=== PATIENT | female | born 1990 | race Caucasian/White ===

== ENCOUNTER → 2018-04-08 | Outpatient (CLI) | payer SELFPAY ==
--- NOTE | 2018-04-08 16:02 | US ---
EXAMINATION TYPE: Transabdominal DATE OF EXAM: 09/07/17 COMPARISON: NONE CLINICAL HISTORY: Z32.01 Encounter for test. Unknown LMP. No pain or bleeding. Dates. EXAM PERFORMED: Transvaginal (TV) and Transabdominal (TA) EXAM MEASUREMENTS: GESTATIONAL AGE / DATING Dates by LMP: LMP unknown Dates by Current Scan for: ( 5 weeks/6 days) EDC: 12/03/2018 MATERNAL ANATOMY Uterus: 8.2 x 5.0 x 4.4 cm Right Ovary: 2.1 x 1.0 x 1.2 cm Left Ovary: 3.0 x 1.8 x 1.9 cm Post CDS / Adnexa: free fluid in posterior cul de sac Presence of free fluid: no Presence of corpus luteal cyst: left ovarian lesion with peripheral vascular flow - 1.7 x 1.7 x 1.7 c m Presence of subchorionic bleed: no GESTATION / SURVEY CRL: 0.2 cm ( 5 weeks/5 days) MSD: 1.1 cm (5 weeks/6 days) Yolk Sac (normal less than 6mm): 2.6 mm Heart Rate: 111 bpm Rhythm: Normal IUP: Viable IUP Date of LMP: Unknown LMP, Beta HcG (if available): Not available at this time Single live IUP measuring 5 weeks 6 days. IMPRESSION: 1. Single intrauterine gestation estimated at 5 weeks 5 days gestation based on crown-rump length. Ca rdiac activity measures 111 bpm.
== END ==
LOC: RADUSMAIN 14:25
PROVIDERS: ATTEND Family Medicine
DX: Z32.01 Encounter for pregnancy test, result positive (principal); Z3A.01 Less than 8 weeks gestation of pregnancy
CPT/HCPCS: 76801; 76817

== ENCOUNTER 2018-05-06 08:20 | Emergency (ER) | payer OTHER ==
[2018-05-06 08:28] VITALS: RESP 16
[2018-05-06] MEDS ORDERED: SODIUM CHLORIDE 0.9% 1,000 ML IV STA ×2 (08:39)
[2018-05-06] MEDS ORDERED: METOCLOPRAMIDE 5 MG/ML 2 ML VIAL IVP STA (08:50)
--- NOTE | 2018-05-06 08:51 | ED ---
Nausea/Vomiting/Diarrhea HPI - General Chief complaint: Nausea/Vomiting/Diarrhea Stated complaint: VOMITING Time Seen by Provider: 05/06/18 08:39 Source: patient, RN notes reviewed, old records reviewed Mode of arrival: ambulatory Limitations: no limitations - History of Present Illness Initial comments: Patient is a 28-year-old female, with a history of vomiting for one day. Patient reports that she started vomiting last evening. She has not been able tolerate her medication. Patient states that she has approximately 10 weeks . She will be following up with [facility] [employer]. Patient states that she has had no fevers or chills. She denies abdominal pain. She denies any vaginal bleeding or discharge.Patient denies any recent fever, chills, shortness of breath, chest pain, back pain, numbness or tingling, dysuria or hematuria, constipation or diarrhea, headaches or visual changes, or any other current symptoms - Related Data Home Medications Medication Instructions Recorded Confirmed Ondansetron Odt [Zofran ODT] 8 mg PO DAILY PRN 04/20/18 05/06/18 Pedi Multivit No.25/Folic Acid 600 mcg PO DAILY 04/20/18 05/06/18 [Flintstones Multivit Chew Tab] Previous Rx's Medication Instructions Recorded Metoclopramide [Reglan] 10 mg PO ACHS #10 tab 05/06/18 Allergies Allergy/AdvReac Type Severity Reaction Status Date / Time amoxicillin Allergy Unknown Verified 05/06/18 08:44 hydromorphone [From Dilaudid] AdvReac Nausea & Verified 05/06/18 08:44 Vomiting Review of Systems ROS Statement: Those systems with pertinent positive or pertinent negative responses have been documented in the HPI. ROS Other: All systems not noted in ROS Statement are negative. Past Medical History Past Medical History: No Reported History Additional Past Medical History / Comment(s): frequent N/V, diarrhea, abd. pain History of Any Multi-Drug Resistant Organisms: None Reported Past Surgical History: Cholecystectomy, Orthopedic Surgery Additional Past Surgical History / Comment(s): EXC WISDOM TEETH. RT KNEE ACL RECONSTRUCTIONS Past Anesthesia/Blood Transfusion Reactions: Postoperative Nausea & Vomiting ( PONV) Additional Past Anesthesia/Blood Transfusion Reaction / Comment(s): SEVERE PONV , EVEN W/ PRE-MED RX Past Psychological History: No Psychological Hx Reported Smoking Status: Never smoker Past Alcohol Use History: None Reported Past Drug Use History: None Reported - Past Family History Mother Family Medical History: No Reported History General Exam - General Exam Comments Initial Comments: Well-appearing 28-year-old female. No acute distress. Limitations: no limitations General appearance: alert, in no apparent distress Head exam: Present: atraumatic, normocephalic, normal inspection Eye exam: Present: normal appearance, PERRL, EOMI. Absent: scleral icterus, conjunctival injection, periorbital swelling ENT exam: Present: normal exam, mucous membranes moist Neck exam: Present: normal inspection. Absent: tenderness, meningismus, lymphadenopathy Respiratory exam: Present: normal lung sounds bilaterally. Absent: respiratory distress, wheezes, rales, rhonchi, stridor Cardiovascular Exam: Present: regular rate, normal rhythm, normal heart sounds. Absent: systolic murmur, diastolic murmur, rubs, gallop, clicks GI/Abdominal exam: Present: soft, normal bowel sounds. Absent: distended, tenderness, guarding, rebound, rigid Extremities exam: Present: normal inspection, full ROM, normal capillary refill. Absent: tenderness, pedal edema, joint swelling, calf tenderness Back exam: Present: normal inspection Neurological exam: Present: alert, oriented X3, CN II-XII intact Psychiatric exam: Present: normal affect, normal mood Skin exam: Present: warm, dry, intact, normal color. Absent: rash Course Vital Signs 05/06/18 08:25 Temperature 98.3 F Pulse Rate 86 Respiratory 16 Rate Blood Pressure 105/69 O2 Sat by Pulse 97 Oximetry Medical Decision Making - Medical Decision Making Patient is a 28-year-old female presents for associated nausea vomiting. She said weeks she is given IV fluids and Reglan. No history of sick contacts she is aware. This time she has no abdominal tenderness. No vaginal bleeding or discharge. Patient did have 1+ ketones in her urine. Patient will have a urine culture. I discussed the Patient should follow-up with primary care physician. Patient will be discharged at this time with Reglan and Zoluis ODT. All questions answered return parameters were discussed. - Lab Data Result diagrams: 05/06/18 09:10 05/06/18 09:10 Lab Results 05/06/18 05/06/18 05/06/18 Range/Units 09:10 09:10 09:10 WBC 10.0 (3.8-10.6) k/uL RBC 4.88 (3.80-5.40) m/uL Hgb 14.5 (11.4-16.0) gm/dL Hct 43.9 (34.0-46.0) % MCV 90.0 (80.0-100.0) fL MCH 29.7 (25.0-35.0) pg MCHC 33.0 (31.0-37.0) g/dL RDW 12.9 (11.5-15.5) % Plt Count 254 (150-450) k/uL Neutrophils % 82 % Lymphocytes % 13 % Monocytes % 3 % Eosinophils % 0 % Basophils % 0 % Neutrophils # 8.2 H (1.3-7.7) k/uL Lymphocytes # 1.3 (1.0-4.8) k/uL Monocytes # 0.3 (0-1.0) k/uL Eosinophils # 0.0 (0-0.7) k/uL Basophils # 0.0 (0-0.2) k/uL Sodium 139 (137-145) mmol/L Potassium 4.6 (3.5-5.1) mmol/L Chloride 104 (98-107) mmol/L Carbon Dioxide 25 (22-30) mmol/L Anion Gap 10 mmol/L BUN 9 (7-17) mg/dL Creatinine 0.41 L (0.52-1.04) mg/dL Est GFR (CKD-EPI)AfAm >90 (>60 ml/min/1.73 sqM) Est GFR (CKD-EPI)NonAf >90 (>60 ml/min/1.73 sqM) Glucose 81 (74-99) mg/dL Calcium 10.1 (8.4-10.2) mg/dL Total Bilirubin 0.4 (0.2-1.3) mg/dL AST 25 (14-36) U/L ALT 35 (9-52) U/L Alkaline Phosphatase 54 (38-126) U/L Total Protein 7.3 (6.3-8.2) g/dL Albumin 4.1 (3.5-5.0) g/dL Amylase 60 (30-110) U/L Lipase 33 (23-300) U/L Urine Color Yellow Urine Appearance Cloudy H (Clear) Urine pH 8.0 (5.0-8.0) Ur Specific [place] 1.019 (1.001-1.035) Urine Protein Trace H (Negative) Urine Glucose (UA) Negative (Negative) Urine Ketones 1+ H (Negative) Urine Blood Negative (Negative) Urine Nitrite Negative (Negative) Urine Bilirubin Negative (Negative) Urine Urobilinogen <2.0 (<2.0) mg/dL Ur Leukocyte Esterase Negative (Negative) Ur Squamous Epith Cells 3 (0-4) /hpf Amorphous Sediment Rare H (None) /hpf Urine Bacteria Rare H (None) /hpf Urine Mucus Few H (None) /hpf Disposition Clinical Impression: Nausea & vomiting Disposition: HOME SELF-CARE Condition: Good Instructions: Nausea and Vomiting in (ED) Additional Instructions: Patient advised to follow-up with primary care physician and [employer]. Return to emergency department if any alarming signs or symptoms occur. Prescriptions: Metoclopramide [Reglan] 10 mg PO ACHS #10 tab Is patient prescribed a controlled substance at d/c from ED?: No Referrals: Serina Rios MD [Primary Care Provider] - 1-2 days Time of Disposition: 10:09
[2018-05-06 09:46] LABS: Basophils % (A) 0 %; Eosinophils % (A) 0 %; HCT 43.9 % (34.0-46.0); HGB 14.5 gm/dL (11.4-16.0); Lymphocytes # (A) 1.3 k/uL (1.0-4.8); Lymphocytes % (A) 13 %; MCH 29.7 pg (25.0-35.0); Mean Platelet Volume 7.2; Monocytes # (A) 0.3 k/uL (0-1.0); Monocytes % (A) 3 %; Neutrophils # (A) 8.2 k/uL (1.3-7.7); Neutrophils % (A) 82 %; Platelet Count 254 k/uL (150-450); RBC 4.88 m/uL (3.80-5.40); RDW 12.9 % (11.5-15.5)
[2018-05-06 09:49] LABS: ALT 35 U/L (9-52); AST 25 U/L (14-36); Albumin 4.1 g/dL (3.5-5.0); Alkaline Phosphatase 54 U/L (38-126); Amylase 60 U/L (30-110); Anion Gap 10 mmol/L; Blood Urea Nitrogen 9 mg/dL (7-17); Calcium 10.1 mg/dL (8.4-10.2); Carbon Dioxide 25 mmol/L (22-30); Chloride 104 mmol/L (98-107); Glucose 81 mg/dL (74-99); Lipase 33 U/L (23-300); Potassium 4.6 mmol/L (3.5-5.1); Sodium 139 mmol/L (137-145); Total Bilirubin 0.4 mg/dL (0.2-1.3); Total Protein 7.3 g/dL (6.3-8.2)
[2018-05-06 09:50] LABS: Amorphous Sediment,Urine Rare /hpf; Appearance,Urine Cloudy (Clear); Bacteria,Urine Rare /hpf; Bilirubin,Urine Negative (Negative); Blood,Urine Negative (Negative); Color,Urine Yellow; Glucose,Urine (UA) Negative (Negative); Ketones,Urine 1+ (Negative); Leukocyte Esterase,Urine Negative (Negative); Mucus,Urine Few /hpf; Nitrite,Urine Negative (Negative); Protein,Urine Trace (Negative); Specific Gravity,Urine 1.019 (1.001-1.035); Squamous Epithelial Cell,Urine 3 /hpf (0-4); Urobilinogen,Urine <2.0 mg/dL (<2.0)
[2018-05-06] MEDS ORDERED: ONDANSETRON 4 MG ODT STARTER PACK 2 TAB BTL PO STA (10:10)
[2018-05-06 10:35] VITALS: BP 112/53; PULSE 70; TEMP 98
== END 2018-05-06 10:35 | disposition home or self-care (01) ==
LOC: EC 08:20
DX: O21.9 Vomiting of pregnancy, unspecified (principal); Z3A.10 10 weeks gestation of pregnancy; Z88.0 Allergy status to penicillin; Z88.5 Allergy status to narcotic agent; Z53.8 Procedure and treatment not carried out for other reasons
CPT/HCPCS: 36415; 80053; 81001; 82150; 83690; 85025; 96361; 96374; 99284

== ENCOUNTER 2018-07-31 10:19 | Emergency (ER) | payer OTHER ==
[2018-07-31 10:29] VITALS: RESP 18
--- NOTE | 2018-07-31 11:06 | ED ---
General Adult HPI - General Chief complaint: Extremity Injury, Lower Stated complaint: Hip pain Source: patient Mode of arrival: ambulatory Limitations: no limitations - History of Present Illness Initial comments: 28-year-old female 22 weeks presents today for chief complaint of left hip pain times one day. Patient states yesterday she was 4 lang doing a lot of walking all day. She states she began noticing left hip pain that has increased throughout the night and persisted today. Patient states the pain begins near the groin and radiates towards the posterior aspect of the hip. She states that increases with ambulation. She denies any falls or trauma to the left hip or back. Denies any left hip erythema or warmth. She denies any lower extremity swelling, or masses. Patient denies any history of blood clots. She has not taken any medication for the pain, she states she does not like to take Tylenol as it upsets her stomach. Remaining review of systems negative, patient denies any recent fever, chills, nightsweats, shortness of breath, chest pain, back pain, abdominal pain, nausea or vomiting, numbness or tingling of the LE b/l, dysuria or hematuria, constipation or diarrhea, headaches or visual changes, or any other complaints. - Related Data Home Medications Medication Instructions Recorded Confirmed Cholecalciferol [Vitamin D3] 1,000 unit PO DAILY 07/31/18 07/31/18 Omeprazole Magnesium [PriLOSEC OTC] 20 mg PO DAILY PRN 07/31/18 07/31/18 Gmj-Vxam-Scvbs Acid 1 cap PO DAILY 07/31/18 07/31/18 [-U Capsule (formulary)] Previous Rx's Medication Instructions Recorded Cephalexin [Keflex] 500 mg PO Q12HR 5 Days #10 cap 07/31/18 Allergies Allergy/AdvReac Type Severity Reaction Status Date / Time amoxicillin Allergy Unknown Verified 07/31/18 13:06 hydromorphone [From Dilaudid] AdvReac Nausea & Verified 07/31/18 13:06 Vomiting Review of Systems ROS Statement: Those systems with pertinent positive or pertinent negative responses have been documented in the HPI. ROS Other: All systems not noted in ROS Statement are negative. Past Medical History Past Medical History: No Reported History Additional Past Medical History / Comment(s): frequent N/V, diarrhea, abd. pain History of Any Multi-Drug Resistant Organisms: None Reported Past Surgical History: Cholecystectomy, Orthopedic Surgery Additional Past Surgical History / Comment(s): EXC WISDOM TEETH. RT KNEE ACL RECONSTRUCTIONS Past Anesthesia/Blood Transfusion Reactions: Postoperative Nausea & Vomiting ( PONV) Additional Past Anesthesia/Blood Transfusion Reaction / Comment(s): SEVERE PONV , EVEN W/ PRE-MED RX Past Psychological History: No Psychological Hx Reported Smoking Status: Never smoker Past Alcohol Use History: None Reported Past Drug Use History: None Reported - Past Family History Mother Family Medical History: No Reported History General Exam - General Exam Comments Initial Comments: General: The patient is awake and alert, in no distress, and does not appear acutely ill. Eye: Pupils are equal, round and reactive to light, extra-ocular movements are intact. No nystagmus. There is normal conjunctiva bilaterally. No signs of icterus. Ears, nose, mouth and throat: There are moist mucous membranes and no oral lesions. Neck: The neck is supple, there is no tenderness or JVD. Cardiovascular: There is a regular rate and rhythm. No murmur, rub or gallop is appreciated. Respiratory: Lungs are clear to auscultation, respirations are non-labored, breath sounds are equal. No wheezes, stridor, rales, or rhonchi. Musculoskeletal: Normal ROM at the hip b/l there is pain to palpation of the left groin, no tenderness of right. Pt has increased pain with rom of the left groin but does not limits movement. Strength 5/5 of the LE equal b/l. Sensation intact of the LE equal b/l. DP pulses equal bilaterally 2+. No soft tissue swelling. No erythema or warmth of joint. No masses Neurological: A&O x 3. CN II-XII intact, There are no obvious motor or sensory deficits. Coordination appears grossly intact. Speech is normal. Skin: Skin is warm and dry and no rashes or lesions are noted. Psychiatric: Cooperative, appropriate mood & affect, normal judgment. Limitations: no limitations Course Vital Signs 07/31/18 07/31/18 10:25 13:33 Temperature 98.8 F 97.8 F Pulse Rate 102 H 92 Respiratory 18 18 Rate Blood Pressure 97/63 108/71 O2 Sat by Pulse 100 98 Oximetry Medical Decision Making - Medical Decision Making Appearing 28-year-old female increasing left hip pain after increased activity yesterday. Duplex US (-) DVT, pt refused imaging studies due to , WBC consistent with 2nd trimester no infectious symptomology at this time. Pt is able to weight bear and fully range at the left hip. US revealed asymptomatic bacteruria. Pt given RX For keflex for treatment given 22 weeks . She is to follow-up with primary care provider her further evaluation. I did recommend rest elevation and applying ice 20 minutes on 20 minutes off. Patient is to return for worsening symptoms, or development of any fever. Patient is agreeable plan discharge tonight questions at this time. Pt case was discussed with attending provider Dr. Metz who agreed with impression and plan. Pt discharged appearing well. - Lab Data Result diagrams: 07/31/18 12:20 07/31/18 12:20 Lab Results 07/31/18 07/31/18 07/31/18 Range/Units 12:20 12:20 12:43 WBC 12.0 H (3.8-10.6) k/uL RBC 4.09 (3.80-5.40) m/uL Hgb 12.8 (11.4-16.0) gm/dL Hct 38.9 (34.0-46.0) % MCV 95.0 (80.0-100.0) fL MCH 31.2 (25.0-35.0) pg MCHC 32.9 (31.0-37.0) g/dL RDW 13.6 (11.5-15.5) % Plt Count 249 (150-450) k/uL Neutrophils % 79 % Lymphocytes % 14 % Monocytes % 4 % Eosinophils % 1 % Basophils % 0 % Neutrophils # 9.5 H (1.3-7.7) k/uL Lymphocytes # 1.7 (1.0-4.8) k/uL Monocytes # 0.5 (0-1.0) k/uL Eosinophils # 0.1 (0-0.7) k/uL Basophils # 0.0 (0-0.2) k/uL Sodium 138 (137-145) mmol/L Potassium 4.0 (3.5-5.1) mmol/L Chloride 109 H (98-107) mmol/L Carbon Dioxide 22 (22-30) mmol/L Anion Gap 7 mmol/L BUN 7 (7-17) mg/dL Creatinine 0.36 L (0.52-1.04) mg/dL Est GFR (CKD-EPI)AfAm >90 (>60 ml/min/1.73 sqM) Est GFR (CKD-EPI)NonAf >90 (>60 ml/min/1.73 sqM) Glucose 93 (74-99) mg/dL Calcium 9.3 (8.4-10.2) mg/dL Total Bilirubin 0.4 (0.2-1.3) mg/dL AST 23 (14-36) U/L ALT 35 (9-52) U/L Alkaline Phosphatase 74 (38-126) U/L Total Protein 6.3 (6.3-8.2) g/dL Albumin 3.3 L (3.5-5.0) g/dL Urine Color Yellow Urine Appearance Cloudy H (Clear) Urine pH 7.5 (5.0-8.0) Ur Specific [place] 1.017 (1.001-1.035) Urine Protein Trace H (Negative) Urine Glucose (UA) 2+ H (Negative) Urine Ketones Negative (Negative) Urine Blood Negative (Negative) Urine Nitrite Negative (Negative) Urine Bilirubin Negative (Negative) Urine Urobilinogen <2.0 (<2.0) mg/dL Ur Leukocyte Esterase Trace H (Negative) Urine WBC 4 (0-5) /hpf Ur Squamous Epith Cells 2 (0-4) /hpf Amorphous Sediment Moderate H (None) /hpf Urine Bacteria Occasional H (None) /hpf Urine Mucus Occasional H (None) /hpf Disposition Clinical Impression: Strain of groin Disposition: HOME SELF-CARE Condition: Good Instructions (If sedation given, give patient instructions): Groin Strain (ED) Additional Instructions: Please use medication as discussed. Please follow-up with family doctor in the next 2 days. Please return to emergency room if the symptoms increase or worsen or for any other concerns. Prescriptions: Cephalexin [Keflex] 500 mg PO Q12HR 5 Days #10 cap Is patient prescribed a controlled substance at d/c from ED?: No Referrals: Serina Rios MD [Primary Care Provider] - 1-2 days Time of Disposition: 13:12
--- NOTE | 2018-07-31 11:52 | US ---
EXAMINATION TYPE: US venous doppler duplex LE LT DATE OF EXAM: 07/31/2018 10:56 AM COMPARISON: NONE CLINICAL HISTORY: Pain. Pain left hip/leg after walking long period of time last night. Patient is pr egnant SIDE PERFORMED: Left TECHNIQUE: The lower extremity deep venous system is examined utilizing real time linear array sonog car with graded compression, doppler sonography and color-flow sonography. VESSELS IMAGED: External Iliac Vein (EIV) Common Femoral Vein Deep Femoral Vein Greater Saphenous Vein * Femoral Vein Popliteal Vein Small Saphenous Vein * Proximal Calf Veins (* superficial vessels) Left Leg: Negative for DVT IMPRESSION: 1. Left lower extremity ultrasound negative for deep venous thrombosis.
[2018-07-31 12:38] LABS: Basophils % (A) 0 %; Eosinophils # (A) 0.1 k/uL (0-0.7); Eosinophils % (A) 1 %; HCT 38.9 % (34.0-46.0); HGB 12.8 gm/dL (11.4-16.0); Lymphocytes # (A) 1.7 k/uL (1.0-4.8); Lymphocytes % (A) 14 %; MCH 31.2 pg (25.0-35.0); MCHC 32.9 g/dL (31.0-37.0); Mean Platelet Volume 7.2; Monocytes # (A) 0.5 k/uL (0-1.0); Monocytes % (A) 4 %; Neutrophils # (A) 9.5 k/uL (1.3-7.7); Neutrophils % (A) 79 %; Platelet Count 249 k/uL (150-450); RBC 4.09 m/uL (3.80-5.40); RDW 13.6 % (11.5-15.5)
[2018-07-31 12:47] LABS: ALT 35 U/L (9-52); AST 23 U/L (14-36); Albumin 3.3 g/dL (3.5-5.0); Alkaline Phosphatase 74 U/L (38-126); Anion Gap 7 mmol/L; Blood Urea Nitrogen 7 mg/dL (7-17); Calcium 9.3 mg/dL (8.4-10.2); Carbon Dioxide 22 mmol/L (22-30); Chloride 109 mmol/L (98-107); Glucose 93 mg/dL (74-99); Sodium 138 mmol/L (137-145); Total Bilirubin 0.4 mg/dL (0.2-1.3); Total Protein 6.3 g/dL (6.3-8.2)
[2018-07-31 13:03] LABS: Amorphous Sediment,Urine Moderate /hpf; Appearance,Urine Cloudy (Clear); Bacteria,Urine Occasional /hpf; Bilirubin,Urine Negative (Negative); Blood,Urine Negative (Negative); Color,Urine Yellow; Glucose,Urine (UA) 2+ (Negative); Ketones,Urine Negative (Negative); Leukocyte Esterase,Urine Trace (Negative); Mucus,Urine Occasional /hpf; Nitrite,Urine Negative (Negative); PH, Urine 7.5 (5.0-8.0); Protein,Urine Trace (Negative); Specific Gravity,Urine 1.017 (1.001-1.035); Squamous Epithelial Cell,Urine 2 /hpf (0-4); Urobilinogen,Urine <2.0 mg/dL (<2.0); WBC,Urine 4 /hpf (0-5)
[2018-07-31 13:34] VITALS: BP 108/71; PULSE 92; TEMP 97.8
== END 2018-07-31 13:34 | disposition home or self-care (01) ==
LOC: EC 10:19
DX: O9A.212 Injury, poisoning and certain other consequences of external causes complicating pregnancy, second trimester (principal); S39.011A Strain of muscle, fascia and tendon of abdomen, initial encounter; O99.89 Other specified diseases and conditions complicating pregnancy, childbirth and the puerperium; R82.71 Bacteriuria; Z90.49 Acquired absence of other specified parts of digestive tract; Z3A.22 22 weeks gestation of pregnancy; Z53.29 Procedure and treatment not carried out because of patient's decision for other reasons; Z88.0 Allergy status to penicillin; Z88.5 Allergy status to narcotic agent; X58.XXXA Exposure to other specified factors, initial encounter
CPT/HCPCS: 36415; 80053; 81001; 85025; 99284

== ENCOUNTER 2018-10-08 16:30 | Outpatient (CLI) | payer OTHER ==
[2018-10-08 17:21] LABS: Appearance,Urine Cloudy (Clear); Bacteria,Urine Rare /hpf; Bilirubin,Urine Negative (Negative); Blood,Urine Negative (Negative); Color,Urine Yellow; Glucose,Urine (UA) 4+ (Negative); Ketones,Urine 1+ (Negative); Leukocyte Esterase,Urine Trace (Negative); Mucus,Urine Occasional /hpf; Nitrite,Urine Negative (Negative); Protein,Urine 1+ (Negative); Specific Gravity,Urine 1.031 (1.001-1.035); Squamous Epithelial Cell,Urine 4 /hpf (0-4); Urobilinogen,Urine <2.0 mg/dL (<2.0); WBC,Urine 6 /hpf (0-5)
[2018-10-08] MEDS: BETAMET ACET-BETAMETH SOD PHOS 6 MG/ML VIAL IM SCH (17:50)
[2018-10-08] MEDS: LACTATED RINGERS 1,000 ML IV SCH (17:51)
[2018-10-08 18:54] VITALS: BP 120/62; PULSE 100; RESP 16; TEMP 98.9
--- NOTE | 2018-10-09 10:15 | P.MSEPDOC ---
Presenting Problems - Arrival Data Date of Arrival on Unit: 10/08/18 Time of Arrival on Unit: 16:30 Mode of Transport: Ambulatory - Complaint OB-Reason for Admission/Chief Complaint: Other Comment: back pain Medical History - Information : 2 Para: 1 Term: 1 : 0 Abortions: Spontaneous or Elective: 0 Number of Living Children: 1 - Gestational Age Gestational Age by FRANCHESCA (wks/days): 32 Weeks and 0 Days Review of Systems - Review of Systems Constitutional: No problems Breast: No problems ENT: No problems Cardiovascular: No problems Respiratory: No problems Gastrointestinal: No problems Genitourinary: No problems Musculoskeletal: No problems Neurological: No problems Skin: No problems Vital Signs - Temperature Temperature: 98.9 F Temperature Source: Oral - Pulse Sitting Pulse Rate: 100 Pulse Assessment Method: Palpation - Respirations Respiratory Rate: 16 Oxygen Delivery Method: Room Air - Blood Pressure Left Arm Blood Pressure: 120/62 Blood Pressure Mean: 81 Blood Pressure Source: Automatic Cuff Medical Screen Scoring (Pre) - Cervical Exam Dilation: 1-3 cm = 1 Effacement: More than 50% = 2 Membranes: Intact - Uterine Contractions Frequency: N/A Duration: N/A Intensity: N/A - Maternal Vital Signs Maternal Temperature: N/A - Pain Assessment Pain Location and Character: Back Pain Intensity: 3 Pain Management Goal: 0 Pain Description: Cramping Pain Frequency: Occasional - Maternal Trauma Maternal Trauma: N/A - Assessment Baseline FHR: 140 Heart Rate - NICHD Category: Category I (Normal) = 0 NST: Reactive - Total Score Total Score (Pre): 3 - Level of Risk Level of Risk: Low (0-5) Physician Notification (Pre) - Physician Notified Physician Notified Date: 10/08/18 Physician Notified Time: 17:45 Physician/Practitioner Notifed:: dr sun Spoke With: dr sun New Order Received: Yes Disposition - Disposition OB Disposition: Discharge to home Discharge Date: 10/08/18 Discharge Time: 18:53 I agree with the RN Medical Screening Exam: Yes Risk & Benefit of care provided described in d/c instruction: Yes Diagnosis: FALSE LABOR BEFORE 37 COMPLETED WEEKS OF GEST, THIRD TRI
== END 2018-10-08 18:55 | disposition home or self-care (01) ==
LOC: FBPOP 16:30
PROVIDERS: ATTEND Obstetrics & Gynecology Obstetrics
DX: O47.03 False labor before 37 completed weeks of gestation, third trimester (principal); Z3A.32 32 weeks gestation of pregnancy
CPT/HCPCS: 59025; 81001; 82731; 96360; 99214

== ENCOUNTER 2018-10-09 18:40 | Outpatient (CLI) | payer OTHER ==
[2018-10-09] MEDS ORDERED: BETAMET ACET-BETAMETH SOD PHOS 6 MG/ML VIAL IM SCH (19:00)
[2018-10-09 19:08] VITALS: BP 122/62; PULSE 117; RESP 18; TEMP 97.3
--- NOTE | 2018-11-14 12:23 | P.MSEPDOC ---
Presenting Problems - Arrival Data Date of Arrival on Unit: 10/09/18 Time of Arrival on Unit: 18:40 Mode of Transport: Ambulatory - Complaint OB-Reason for Admission/Chief Complaint: Celestone Injection Comment: 2nd celestone injection Medical History - Information : 2 Para: 1 Term: 1 : 0 Abortions: Spontaneous or Elective: 0 Number of Living Children: 1 - Gestational Age Gestational Age by FRANCHESCA (wks/days): 32 Weeks and 1 Days Review of Systems - Review of Systems Constitutional: No problems Breast: No problems ENT: No problems Cardiovascular: No problems Respiratory: No problems Gastrointestinal: No problems Genitourinary: No problems Musculoskeletal: No problems Neurological: No problems Skin: No problems Vital Signs - Temperature Temperature: 97.3 F Temperature Source: Temporal Artery Scan - Pulse Right Brachial Pulse Rate: 117 Pulse Assessment Method: Automatic Cuff - Respirations Respiratory Rate: 18 Oxygen Delivery Method: Room Air - Blood Pressure Right Arm Blood Pressure: 122/62 Blood Pressure Mean: 82 Blood Pressure Source: Automatic Cuff Medical Screen Scoring (Pre) - Cervical Exam Dilation: Exam Deferred Effacement: Exam Deferred Membranes: Intact - Maternal Vital Signs Maternal Temperature: N/A Maternal Blood Pressure: N/A Signs of Preeclampsia: N/A - Assessment - Baby A Position: N/A Station: N/A - Total Score - Baby A Total Score - Baby A: 0 - Level of Risk - Baby A Level of Risk - Baby A: N/A - Pain Assessment Pain Scale Used: Numeric (1 - 10) Pain Intensity: 0 Physician Notification (Pre) - Physician Notified Physician Notified Date: 10/09/18 Physician Notified Time: 18:45 Physician/Practitioner Notifed:: Dr. Sanders Spoke With: Dr. Sanders New Order Received: Yes - Notification Comment Comment: celestone injection only, no NST is needed Disposition - Disposition OB Disposition: Triage, Discharge to home, Written follow up instructions reviewed Discharge Date: 10/09/18 Discharge Time: 19:05 I agree with the RN Medical Screening Exam: Yes Risk & Benefit of care provided described in d/c instruction: Yes Diagnosis: FALSE LABOR BEFORE 37 COMPLETED WEEKS OF GEST, THIRD TRI
== END 2018-10-09 19:05 | disposition home or self-care (01) ==
LOC: FBPOP 18:40
PROVIDERS: ATTEND Obstetrics & Gynecology Obstetrics
DX: O47.03 False labor before 37 completed weeks of gestation, third trimester (principal); Z3A.32 32 weeks gestation of pregnancy
CPT/HCPCS: 96372; G0463; J0702; 99213

== ENCOUNTER 2018-10-19 15:19 | Outpatient (CLI) | payer OTHER ==
[2018-10-19 15:50] LABS: Basophils % (A) 0 %; Eosinophils # (A) 0.1 k/uL (0-0.7); Eosinophils % (A) 1 %; HCT 34.7 % (34.0-46.0); HGB 11.5 gm/dL (11.4-16.0); Hypochromasia Slight; Lymphocytes # (A) 1.8 k/uL (1.0-4.8); Lymphocytes % (A) 12 %; MCH 28.2 pg (25.0-35.0); MCHC 33.1 g/dL (31.0-37.0); Monocytes # (A) 0.7 k/uL (0-1.0); Monocytes % (A) 5 %; Neutrophils # (A) 12.2 k/uL (1.3-7.7); Neutrophils % (A) 81 %; Platelet Count 326 k/uL (150-450); Poikilocytosis Slight; RBC 4.07 m/uL (3.80-5.40); RDW 13.6 % (11.5-15.5)
[2018-10-19 16:05] LABS: ALT 38 U/L (9-52); AST 27 U/L (14-36); African American GFR (CKD) >90 (>60 ml/min/1.73 sqM); Blood Urea Nitrogen 9 mg/dL (7-17); LDH 409 U/L (313-618); Uric Acid 2.9 mg/dL (3.7-7.4)
[2018-10-19 16:12] LABS: MCV 85.3 fL (80.0-100.0)
[2018-10-19 16:56] VITALS: BP 120/68; PULSE 107; RESP 16; TEMP 97.4
[2018-10-19 17:50] LABS: Appearance,Urine Turbid (Clear); Bilirubin,Urine Negative (Negative); Blood,Urine Negative (Negative); Color,Urine Yellow; Glucose,Urine (UA) 3+ (Negative); Ketones,Urine Negative (Negative); Leukocyte Esterase,Urine Moderate (Negative); Mucus,Urine Many /hpf; Nitrite,Urine Negative (Negative); Protein,Urine 1+ (Negative); Specific Gravity,Urine 1.032 (1.001-1.035); Squamous Epithelial Cell,Urine 9 /hpf (0-4); Urobilinogen,Urine <2.0 mg/dL (<2.0); WBC,Urine 26 /hpf (0-5)
--- NOTE | 2018-11-14 12:32 | P.MSEPDOC ---
Presenting Problems - Arrival Data Date of Arrival on Unit: 10/19/18 Time of Arrival on Unit: 15:19 Mode of Transport: Ambulatory - Complaint OB-Reason for Admission/Chief Complaint: NST, PIH Medical History - Information : 2 Para: 1 Term: 1 : 0 Abortions: Spontaneous or Elective: 0 Number of Living Children: 1 - Gestational Age Gestational Age by FRANCHESCA (wks/days): 33 Weeks and 4 Days Review of Systems - Review of Systems Constitutional: No problems Breast: No problems ENT: No problems Cardiovascular: No problems Respiratory: No problems Gastrointestinal: No problems Genitourinary: No problems Musculoskeletal: No problems Neurological: No problems Skin: No problems Vital Signs - Temperature Temperature: 97.4 F Temperature Source: Temporal Artery Scan - Pulse Right Sitting Brachial Pulse Rate: 107 Pulse Assessment Method: Automatic Cuff - Respirations Respiratory Rate: 16 O2 Sat by Pulse Oximetry: 99 - Blood Pressure Right Arm Blood Pressure: 120/68 Blood Pressure Mean: 85 Blood Pressure Source: Automatic Cuff Medical Screen Scoring (Pre) - Cervical Exam Dilation: 1-3 cm = 1 Effacement: More than 50% = 2 Membranes: Intact - Uterine Contractions Frequency: N/A Duration: N/A Intensity: N/A - Maternal Vital Signs Maternal Temperature: N/A Signs of Preeclampsia: Headache = 1, Nausea/Vomiting = 1 Maternal Respirations: N/A - Maternal Trauma Maternal Trauma: N/A - Assessment - Baby A Baseline FHR: 135 Heart Rate - NICHD Category: Category I (Normal) = 0 NST: Reactive Position: N/A Station: N/A - Total Score - Baby A Total Score - Baby A: 5 - Level of Risk - Baby A Level of Risk - Baby A: Low (0-5) - Pain Assessment Pain Location and Character: Head Pain Scale Used: Numeric (1 - 10) Pain Intensity: 3 Pain Management Goal: 2 Pain Description: *Acute, Dull Pain Radiation Location: none Pain Frequency: Constant Pain Duration: 1 Pain Duration Units: Days Pain Behavior: None Exhibited Pain Aggravating Factors: None Non-Pharmacological Interventions: Darkened Room Physician Notification (Pre) - Physician Notified Physician Notified Date: 10/19/18 Physician Notified Time: 16:19 Physician/Practitioner Notifed:: Tremp New Order Received: Yes (discharged) Disposition - Disposition OB Disposition: Discharge to home, Written follow up instructions reviewed Discharge Date: 10/19/18 Discharge Time: 16:45 I agree with the RN Medical Screening Exam: Yes Risk & Benefit of care provided described in d/c instruction: Yes Diagnosis: HEADACHE
== END 2018-10-19 16:45 | disposition home or self-care (01) ==
LOC: FBPOP 15:19
PROVIDERS: ATTEND Obstetrics & Gynecology Obstetrics
DX: O99.89 Other specified diseases and conditions complicating pregnancy, childbirth and the puerperium (principal); R51 Headache; Z3A.33 33 weeks gestation of pregnancy
CPT/HCPCS: 59025; 82570; 84156; 82565; 83615; 84450; 84460; 84520; 84550; 85025; 81001; G0463; 99215

== ENCOUNTER 2018-10-26 11:20 | Outpatient (CLI) | payer OTHER ==
[2018-10-26] MEDS ORDERED: LACTATED RINGERS 1,000 ML IV ONE (12:12)
[2018-10-26] MEDS ORDERED: LACTATED RINGERS 1,000 ML IV SCH ×2 (12:15→13:45)
[2018-10-26 12:25] VITALS: RESP 18; TEMP 97.3
[2018-10-26] MEDS: NIFEdipine 10 MG CAP PO PRN ×3 (12:30→14:02)
[2018-10-26 14:53] VITALS: BP 116/59; PULSE 86
--- NOTE | 2018-11-14 12:37 | P.MSEPDOC ---
Presenting Problems - Arrival Data Date of Arrival on Unit: 10/26/18 Time of Arrival on Unit: 11:20 Mode of Transport: Ambulatory - Complaint OB-Reason for Admission/Chief Complaint: Possible Onset of Labor Medical History - Information : 2 Para: 0 Term: 1 : 0 Abortions: Spontaneous or Elective: 1 Number of Living Children: 1 - Gestational Age Gestational Age by FRANCHESCA (wks/days): 34 Weeks and 4 Days Review of Systems - Review of Systems Constitutional: No problems Breast: No problems ENT: No problems Cardiovascular: No problems Respiratory: No problems Gastrointestinal: No problems Genitourinary: No problems Musculoskeletal: No problems Neurological: No problems Skin: No problems Vital Signs - Temperature Temperature: 97.3 F Temperature Source: Oral - Pulse Right Pulse Oximetery Pulse Rate: 86 Pulse Assessment Method: Pulse Oximetry - Respirations Respiratory Rate: 18 Oxygen Delivery Method: Room Air - Blood Pressure Right Arm Blood Pressure: 116/59 Blood Pressure Mean: 78 Blood Pressure Source: Automatic Cuff Medical Screen Scoring (Pre) - Cervical Exam Dilation: 1-3 cm = 1 Effacement: More than 50% = 2 Membranes: Intact - Uterine Contractions Frequency: > 5 minutes apart = 1, < 36 weeks = 6 Duration: > 40 seconds = 2 - Maternal Vital Signs Maternal Temperature: N/A Maternal Blood Pressure: N/A Signs of Preeclampsia: N/A Maternal Respirations: N/A - Maternal Trauma Maternal Trauma: N/A - Assessment - Baby A Baseline FHR: 145 Heart Rate - NICHD Category: Category I (Normal) = 0 NST: Reactive Position: N/A - Total Score - Baby A Total Score - Baby A: 12 - Level of Risk - Baby A Level of Risk - Baby A: High (10+) - Pain Assessment Pain Location and Character: Abdomen, Perineal Pain Scale Used: Numeric (1 - 10) Pain Intensity: 7 Pain Management Goal: 3 Pain Description: Aching, Pressure, Stabbing Pain Frequency: Intermittent Pain Duration: 4 Pain Duration Units: Hours Pain Behavior: Vocalization Pain Aggravating Factors: Activity, Position Non-Pharmacological Interventions: Position/Reposition Physician Notification (Pre) - Physician Notified Physician Notified Date: 10/26/18 Physician Notified Time: 12:05 Physician/Practitioner Notifed:: Dr. Sanders Spoke With: Dr. Sanders New Order Received: Yes - Notification Comment Comment: Order received to administer Procardia per labor orders. Medical Screen Scoring (Post) - Cervical Exam Dilation: 1-3 cm = 1 Effacement: More than 50% = 2 - Uterine Contractions Frequency: N/A Duration: N/A Intensity: N/A - Maternal Vital Signs Maternal Temperature: N/A Maternal Blood Pressure: N/A Signs of Preeclampsia: N/A Maternal Respirations: N/A - Pain Assessment Pain Location and Character: Abdomen Pain Scale Used: Numeric (1 - 10) Pain Intensity: 1 Pain Management Goal: 1 Pain Description: *Acute, Cramping Pain Radiation Location: none Pain Frequency: Intermittent Pain Behavior: None Exhibited Pain Aggravating Factors: Contractions - Maternal Trauma Maternal Trauma: N/A - Assessment - Baby A Heart Rate: 140 Heart Rate - NICHD Category: Category I (Normal) = 0 NST: Reactive Position: N/A Station: N/A - Total Score Total Score - Baby A: 3 - Post Treatment Level of Risk Post Treatment Level of Risk - Baby A: Low (0-5) Physician Notification (Post) - Physician Notified Physician Notified Date: 10/26/18 Physician Notified Time: 14:30 Physician/Practitioner Notified:: Dr. Sanders Spoke With: Dr. Sanders New Order Received: Yes - Notification Comment Comment: Pt treated with IVF and procardia protocol, [facility] [place], has another appt in office on November 10 Disposition - Disposition OB Disposition: Triage, Discharge to home, Written follow up instructions reviewed Discharge Date: 10/26/18 Discharge Time: 14:40 I agree with the RN Medical Screening Exam: Yes Risk & Benefit of care provided described in d/c instruction: Yes Diagnosis: FALSE LABOR BEFORE 37 COMPLETED WEEKS OF GEST, THIRD TRI
== END 2018-10-26 14:40 | disposition home or self-care (01) ==
LOC: FBPOP 11:20
PROVIDERS: ATTEND Obstetrics & Gynecology Obstetrics
DX: O47.03 False labor before 37 completed weeks of gestation, third trimester (principal); Z3A.34 34 weeks gestation of pregnancy
CPT/HCPCS: 59025; 96360; 96361; G0463; 99214

== ENCOUNTER 2018-11-03 12:22 | Outpatient (CLI) | payer OTHER ==
[2018-11-03] MEDS ORDERED: NIFEdipine 10 MG CAP PO PRN (12:55)
[2018-11-03] MEDS ORDERED: LACTATED RINGERS 1,000 ML IV SCH (13:00)
[2018-11-03 15:45] VITALS: BP 137/63; PULSE 125; RESP 18; TEMP 97.6
--- NOTE | 2018-11-14 12:38 | P.MSEPDOC ---
Presenting Problems - Arrival Data Date of Arrival on Unit: 11/03/18 Time of Arrival on Unit: 12:22 Mode of Transport: Ambulatory - Complaint OB-Reason for Admission/Chief Complaint: Possible Onset of Labor Comment: pt presents to triage for contractions that are stronger and more regular Medical History - Information : 2 Para: 1 Term: 0 : 1 Abortions: Spontaneous or Elective: 0 Number of Living Children: 1 - Gestational Age Gestational Age by FRANCHESCA (wks/days): 35 Weeks and 5 Days - History Complications: Prior Review of Systems - Review of Systems Constitutional: No problems Breast: No problems ENT: No problems Cardiovascular: No problems Respiratory: No problems Gastrointestinal: No problems Genitourinary: No problems Musculoskeletal: No problems Neurological: No problems Skin: No problems Vital Signs - Temperature Temperature: 97.6 F Temperature Source: Temporal Artery Scan - Pulse Right Brachial Pulse Rate: 125 Pulse Assessment Method: Automatic Cuff - Respirations Respiratory Rate: 18 Oxygen Delivery Method: Room Air O2 Sat by Pulse Oximetry: 99 - Blood Pressure Right Arm Blood Pressure: 137/63 Blood Pressure Mean: 87 Blood Pressure Source: Automatic Cuff Medical Screen Scoring (Pre) - Cervical Exam Dilation: 1-3 cm = 1 Effacement: More than 50% = 2 Membranes: Intact - Uterine Contractions Frequency: < 36 weeks = 6 Duration: N/A Intensity: N/A - Maternal Vital Signs Maternal Temperature: N/A Maternal Blood Pressure: N/A Signs of Preeclampsia: N/A Maternal Respirations: N/A - Maternal Trauma Maternal Trauma: N/A - Total Score - Baby A Total Score - Baby A: 9 - Level of Risk - Baby A Level of Risk - Baby A: Medium (6-9) - Pain Assessment Pain Location and Character: Abdomen Pain Scale Used: Numeric (1 - 10) Pain Intensity: 6 Pain Description: *Acute, Cramping, Pressure Pain Radiation Location: none Pain Frequency: Intermittent Pain Duration: 1 Pain Duration Units: Hours Pain Behavior: Vocalization Pain Aggravating Factors: Contractions Physician Notification (Pre) - Physician Notified Physician Notified Date: 11/03/18 Physician Notified Time: 12:53 Physician/Practitioner Notifed:: Dr. Sanders Spoke With: Dr. Sanders New Order Received: Yes - Notification Comment Comment: give 1 liter of LR and procardia protocol Medical Screen Scoring (Post) - Cervical Exam Dilation: 1-3 cm = 1 Effacement: More than 50% = 2 Membranes: Intact - Uterine Contractions Frequency: < 36 weeks = 6 Duration: N/A - Maternal Vital Signs Maternal Temperature: N/A Maternal Blood Pressure: N/A Signs of Preeclampsia: N/A Maternal Respirations: N/A - Pain Assessment Pain Intensity: 6 Pain Description: *Acute, Cramping, Pressure Pain Frequency: Intermittent Pain Behavior: Vocalization Pain Aggravating Factors: Contractions - Maternal Trauma Maternal Trauma: N/A - Assessment - Baby A Heart Rate: 130 Heart Rate - NICHD Category: Category I (Normal) = 0 NST: Reactive Position: N/A Station: N/A - Total Score Total Score - Baby A: 9 - Post Treatment Level of Risk Post Treatment Level of Risk - Baby A: Medium (6-9) Physician Notification (Post) - Physician Notified Physician Notified Date: 11/03/18 Physician Notified Time: 14:00 Physician/Practitioner Notified:: Dr. Sanders Spoke With: Dr. Sanders New Order Received: Yes - Notification Comment Comment: pt given 1 liter of IV LR, she refused to take procardia, saying it made her "feel crappy," no cervical change, discharge home, follow up at next at appt on the , pt encouraged to take procardia at home for sake of baby to remain in utero as long as possible Disposition - Disposition OB Disposition: Discharge to home, Written follow up instructions reviewed Discharge Date: 11/03/18 Discharge Time: 11:28 I agree with the RN Medical Screening Exam: Yes Risk & Benefit of care provided described in d/c instruction: Yes Diagnosis: FALSE LABOR BEFORE 37 COMPLETED WEEKS OF GEST, THIRD TRI
== END 2018-11-03 14:10 | disposition home or self-care (01) ==
LOC: FBPOP 12:22
PROVIDERS: ATTEND Obstetrics & Gynecology Obstetrics
DX: O47.03 False labor before 37 completed weeks of gestation, third trimester (principal); Z3A.35 35 weeks gestation of pregnancy
CPT/HCPCS: 59025; 96360; G0463; 99214

== ENCOUNTER 2018-11-23 06:00 | Inpatient (IN) | payer OTHER ==
[2018-11-23] MEDS ORDERED: CARBOPROST TROMETHAMINE 250 MCG/ML 1 ML AMP IM PRN (06:26)
[2018-11-23] MEDS ORDERED: LIDOCAINE 0.5% (PF) 5 MG/ML (50 ML SDV) SQ PRN (06:26)
[2018-11-23] MEDS ORDERED: METHYLERGONOVINE 0.2 MG/ML 1 ML AMP IM PRN (06:26)
[2018-11-23] MEDS ORDERED: OXYTOCIN 10 UNIT/ML 1 ML VIAL IM PRN (06:26)
[2018-11-23] MEDS ORDERED: TERBUTALINE 1 MG/ML VIAL SQ PRN (06:26)
[2018-11-23] MEDS ORDERED: OXYTOCIN 30 UNITS/500 ML NS 30 UNIT in SALINE 1 500ML.BAG IV SCH (06:30)
[2018-11-23] MEDS: LACTATED RINGERS 1,000 ML IV SCH ×2 (06:35→20:38)
[2018-11-23 06:43] LABS: Basophils % (A) 0 %; Eosinophils # (A) 0.2 k/uL (0-0.7); Eosinophils % (A) 1 %; HCT 36.8 % (34.0-46.0); HGB 11.3 gm/dL (11.4-16.0); Hypochromasia Slight; Lymphocytes # (A) 2.2 k/uL (1.0-4.8); Lymphocytes % (A) 17 %; MCH 25.1 pg (25.0-35.0); MCHC 30.8 g/dL (31.0-37.0); MCV 81.6 fL (80.0-100.0); Mean Platelet Volume 7.2; Monocytes # (A) 0.7 k/uL (0-1.0); Monocytes % (A) 6 %; Neutrophils # (A) 9.6 k/uL (1.3-7.7); Neutrophils % (A) 74 %; Platelet Count 357 k/uL (150-450); RBC 4.51 m/uL (3.80-5.40); RDW 15.3 % (11.5-15.5)
[2018-11-23 06:47] VITALS: BMI 30.4
--- NOTE | 2018-11-23 08:38 | P.HPOB ---
History of Present Illness H&P Date: 11/23/18 Chief Complaint: IUP at 38-4/7 weeks, chronic contractions, maternal discom fort/distress This is a pleasant 28-year-old 2 para 1001 at 38-4/7 weeks that presents to labor and delivery for induction of labor. Patient has been noted to be 2 cm since third trimester. Patient has been off work for numerous weeks secondary to chronic contractions and discomfort. Patient has been seen in triage multiple times for rule out labor, contractions. Today patient notes good movement and denies loss of fluid or vaginal bleeding. Patient has been seeing myself for routine care and other than chronic contraction/ contractions she has had an uncomplicated . On blood work she has a blood type of A-, rubella immune, hepatitis B surface antigen negative, HIV negative, RPR nonreactive, GBS negative. Review of Systems Constitutional: Denies chills, Denies fatigue, Denies fever Ears, nose, mouth and throat: Denies headache Cardiovascular: Reports leg edema Gastrointestinal: Denies nausea, Denies vomiting Genitourinary: Reports Past Medical History Past Medical History: No Reported History Additional Past Medical History / Comment(s): frequent N/V, diarrhea, abd. pain History of Any Multi-Drug Resistant Organisms: None Reported Past Surgical History: Cholecystectomy, Orthopedic Surgery Additional Past Surgical History / Comment(s): EXC WISDOM TEETH. RT KNEE ACL RECONSTRUCTIONS Past Anesthesia/Blood Transfusion Reactions: Postoperative Nausea & Vomiting (PONV) Additional Past Anesthesia/Blood Transfusion Reaction / Comment(s): SEVERE PONV, EVEN W/ PRE-MED RX Past Psychological History: No Psychological Hx Reported Smoking Status: Never smoker Past Alcohol Use History: None Reported Past Drug Use History: None Reported - Past Family History Mother Family Medical History: No Reported History Medications and Allergies Home Medications Medication Instructions Recorded Confirmed Type Vxe-Icfb-Wgfrd Acid 1 cap PO DAILY 07/31/18 11/23/18 History [-U Capsule (formulary)] Ranitidine HCl [Zantac] 150 mg PO HS 10/09/18 11/23/18 History Ondansetron [Zofran] 4 mg PO Q12HR PRN 11/23/18 11/23/18 History Allergies Allergy/AdvReac Type Severity Reaction Status Date / Time amoxicillin Allergy Unknown Verified 11/23/18 06:24 Tetanus Vaccines and Toxoid Allergy Rash/Hives Verified 11/23/18 06:24 hydrocodone [From [place]] AdvReac Nausea & Verified 11/23/18 06:24 Vomiting hydromorphone [From Dilaudid] AdvReac Nausea & Verified 11/23/18 06:24 Vomiting Exam Osteopathic Statement: *. No significant issues noted on an osteopathic structural exam other than those noted in the History and Physical/Consult. Vital Signs Temp Pulse Resp BP Pulse Ox 11/23/18 06:39 97.5 F L 111 H 16 129/66 98 Intake and Output 11/22/18 11/23/18 11/23/18 22:59 06:59 14:59 Other: Weight 70.76 kg Targeted physical exam is performed and the state in general this is a well- nourished well-developed female in no acute distress, breathing is noted to be nonlabored, her heart has regular rhythm, abdomen is noted be gravid and appropriate for gestational age, on vaginal exam her cervix is 4/70/-2 amniotomy is performed and clear fluid was obtained. heart tones are noted to be category 1 and she is mali every 2 minutes. Results Result Diagrams: 11/23/18 06:30 Abnormal Lab Results - Last 24 Hours (Table) 11/23/18 Range/Units 06:30 WBC 13.0 H (3.8-10.6) k/uL Hgb 11.3 L (11.4-16.0) gm/dL MCHC 30.8 L (31.0-37.0) g/dL Neutrophils # 9.6 H (1.3-7.7) k/uL Assessment and Plan (1) Term Current Visit: Yes Status: Acute Code(s): Z34.90 - ENCNTR FOR SUPRVSN OF NORMAL , UNSP, UNSP TRIMESTER SNOMED Code(s): 54687303 (2) Uterine contractions Current Visit: Yes Status: Acute Code(s): WOQ5932 - SNOMED Code(s): 964547188 Plan: Given patient's social status at home patient was offered induction of labor secondary to advanced dilation of 4 cm/chronic contractions/maternal discomfort/family stress as her brother is being deployed. Patient was offered induction of labor she is currently accepted. Pitocin induction of labor was begun, amniotomy was performed and clear fluid was obtained. She does only request Stadol for pain control and at this time is declining epidural. Anticipate spontaneous vaginal delivery later today.
[2018-11-23] MEDS ORDERED: BUTORPHANOL 1 MG/ML 1 ML VIAL IV PRN (08:39)
[2018-11-23] MEDS ORDERED: BENZOCAINE/MENTHOL SPRAY 1 GM/SPRAY AEROSOL TOPICAL PRN (11:38)
[2018-11-23] MEDS ORDERED: ACETAMINOPHEN TAB 325 MG TAB PO PRN (11:38)
[2018-11-23] MEDS ORDERED: diphenhydrAMINE 50 MG CAP PO PRN (11:38)
[2018-11-23] MEDS ORDERED: LANOLIN CREAM 5 GM TUBE TOPICAL PRN (11:38)
[2018-11-23] MEDS ORDERED: WITCH HAZEL 1 EACH MED..PAD TOPICAL PRN (11:38)
[2018-11-23] MEDS ORDERED: diphenhydrAMINE 25 MG CAP PO PRN (11:38)
[2018-11-23] MEDS ORDERED: ZOLPIDEM 5 MG TAB PO PRN (11:38)
[2018-11-23] MEDS ORDERED: SIMETHICONE 80 MG CHEWABLE PO PRN (11:38)
[2018-11-23] MEDS ORDERED: diphenhydrAMINE 50 MG/ML 1 ML VIAL IVP PRN ×2 (11:38)
[2018-11-23] MEDS ORDERED: HYDROCORTISONE 2.5% RECTAL CREAM 30 GM TUBE RECTAL PRN (11:38)
--- NOTE | 2018-11-23 11:42 | P.PROBDLV ---
Vaginal Delivery Note - . Vaginal Delivery Note: This pleasant 28-year-old 2 para 1 at 38 and 4/7 weeks presented to labor and delivery for induction of labor. Patient was admitted and Pitocin induction was begun. Once regular contractions were noted amniotomy was performed and clear fluid was obtained. Patient progressed rather quickly to complete and had a precipitous spontaneous vaginal delivery of a viable female infant at 1128, weight is pending at this time as maternal bonding has begun. Afterwards the umbilical cord was doubly clamped and cut the placenta was delivered spontaneously intact with a three-vessel cord being noted. No vaginal lacerations were noted on inspection. The uterus is noted to be firm and below the umbilicus at this time. Estimated blood loss 200cc. Patient and tolerated delivery well and are resting comfortably
[2018-11-23] MEDS ORDERED: OXYTOCIN 20 UNITS/1000 ML NS 1,000 ML IV SCH (11:45)
[2018-11-23] MEDS: IBUPROFEN 600 MG TAB PO PRN ×2 (14:33→21:18)
[2018-11-23] MEDS: PRENATAL VIT-IRON-FOLIC ACID 1 EACH CAP PO SCH (20:38)
[2018-11-23] MEDS: SENNOSIDES-DOCUSATE SODIUM 1 EACH TAB PO SCH (20:38)
[2018-11-23] MEDS ORDERED: FAMOTIDINE 20 MG TAB PO SCH (21:00)
[2018-11-24] MEDS: IBUPROFEN 600 MG TAB PO PRN ×2 (05:29→11:34)
[2018-11-24 07:32] LABS: Basophils % (A) 0 %; Eosinophils # (A) 0.1 k/uL (0-0.7); Eosinophils % (A) 1 %; HCT 33.4 % (34.0-46.0); HGB 10.6 gm/dL (11.4-16.0); Hypochromasia Slight; Lymphocytes # (A) 2.1 k/uL (1.0-4.8); Lymphocytes % (A) 15 %; MCH 25.7 pg (25.0-35.0); MCHC 31.8 g/dL (31.0-37.0); MCV 80.9 fL (80.0-100.0); Monocytes # (A) 0.7 k/uL (0-1.0); Monocytes % (A) 5 %; Neutrophils # (A) 11.2 k/uL (1.3-7.7); Neutrophils % (A) 78 %; Platelet Count 304 k/uL (150-450); RBC 4.14 m/uL (3.80-5.40); RDW 14.9 % (11.5-15.5); WBC 14.5 k/uL (3.8-10.6)
[2018-11-24] MEDS: SENNOSIDES-DOCUSATE SODIUM 1 EACH TAB PO SCH (08:15)
[2018-11-24] MEDS: PRENATAL VIT-IRON-FOLIC ACID 1 EACH CAP PO SCH (08:15)
--- NOTE | 2018-11-24 08:34 | P.DS ---
Providers Date of admission: 11/23/18 06:00 Expected date of discharge: 11/24/18 Attending physician: Tavia Sanders Primary care physician: Stated None - Discharge Diagnosis(es) (1) Term Current Visit: Yes Status: Acute (2) Uterine contractions Current Visit: Yes Status: Acute (3) Active labor at term Current Visit: Yes Status: Acute (4) Status post vaginal delivery Current Visit: Yes Status: Acute Hospital Course: This is a 28-year-old 2 para 1001 that presented to labor and delivery at 38-3/7 weeks for induction of labor. Patient was noted to be advanced cervical dilation of 4 cm when she was admitted and was mali every 3 minutes. Patient was a known chronic contracture with multiple social issues. For further details please see the admission H&P. Patient was admitted Pitocin induction of labor was begun. Patient progressed quickly to complete began pushing and had a normal spontaneous vaginal delivery, precipitous at 1128, weight of 6 pounds 2.2 ounces, Apgars of 8 and 8 at one and 5 minutes respectively. Patient did not sustain any vaginal lacerations during the delivery. Patient's course has been uneventful. She is ambulating and voiding without difficulty on this day #1. She is tolerating a regular diet without nausea or vomiting. She is bottle feeding. She states her lochia is moderate. She denies concerns and wishes discharge home at 24 hours. Patient Condition at Discharge: Good Plan - Discharge Summary New Discharge Prescriptions: No Action Lhs-Sfwe-Otnxh Acid [-U Capsule (formulary)] 1 cap PO DAILY Ranitidine HCl [Zantac] 150 mg PO HS Ondansetron [Zofran] 4 mg PO Q12HR PRN PRN Reason: Nausea Discharge Medication List Nhu-Iikm-Zjtkv Acid [-U Capsule (formulary)] 1 cap PO DAILY 07/31/18 [History] Ranitidine HCl [Zantac] 150 mg PO HS 10/09/18 [History] Ondansetron [Zofran] 4 mg PO Q12HR PRN 11/23/18 [History] Follow up Appointment(s)/Referral(s): Tavia Sanders DO [Doctor of Osteopathic Medicine] - 4 Weeks Patient Instructions/Handouts: Vaginal Delivery (DC), Vaginal Delivery (GEN) Discharge Disposition: HOME SELF-CARE
[2018-11-24 08:35] VITALS: BP 115/70; PULSE 71; RESP 18; TEMP 98.2
== END 2018-11-24 14:38 | disposition home or self-care (01) | DRG 807 ==
LOC: 4FBP 06:00
PROVIDERS: ADMIT Obstetrics & Gynecology Obstetrics; ATTEND Obstetrics & Gynecology Obstetrics
PROC: 10E0XZZ Delivery of Products of Conception, External Approach (ICD-10-PCS; principal; 2018-11-23)
DX: O62.3 Precipitate labor (principal); Z37.0 Single live birth; Z3A.38 38 weeks gestation of pregnancy
CPT/HCPCS: 85025; 86850; 86900; 86901

== ENCOUNTER → 2018-12-20 | Outpatient (CLI) | payer OTHER ==
--- NOTE | 2018-12-20 14:14 | XR ---
Right hip HISTORY: Right hip pain 2 views of the right hip Bone mineralization, joint spaces and alignment are maintained. No fracture or dislocation. IMPRESSION: Normal right hip. Hip MRI may be of benefit.
== END | disposition home or self-care (01) ==
LOC: RADXRMAIN 11:12
PROVIDERS: ATTEND Nurse Practitioner
DX: M25.551 Pain in right hip (principal)
CPT/HCPCS: 73501

== ENCOUNTER → 2019-03-03 | Outpatient (CLI) | payer OTHER ==
--- NOTE | 2019-03-03 08:23 | MR ---
EXAMINATION TYPE: MR hip RT wo con DATE OF EXAM: 03/03/2019 COMPARISON: Radiograph 12/20/2018 HISTORY: 28-year-old female Right hip pain TECHNIQUE: Multiplanar, multisequence images of the right hip were obtained without IV contrast. FINDINGS: On the axial series, there is the appearance of superior acetabular retroversion on the right. No lavern dence for hip fracture or AVN. No sizable paralabral cyst or significant degenerative change identifi ed in either hip. Prominent red marrow compatible with patient's young age. No suspicious bone marrow replacement. The sacrum appears intact. There is subarticular edema along the inferior, synovial portion of the ri ght SI joint. The rectus femoris and hamstring origins as well as the iliopsoas and gluteal insertions appear intac t. Symmetric course, caliber, and signal intensity of the sciatic nerves. Retroverted uterus. No abnormal fluid collection in the pelvis. IMPRESSION: 1. Suggestion of superior acetabular retroversion on the right on the axial series may contribute to symptoms of pincer-type femoral acetabular impingement. Correlate with physical exam testing. 2. Subarticular edema along the inferior, synovial portion of the right SI joint suggests underlying right SI joint OA.
== END ==
LOC: RADMRIMAIN 06:24
PROVIDERS: ATTEND Nurse Practitioner
DX: R60.0 Localized edema (principal)

== ENCOUNTER 2019-09-13 00:07 | Emergency (ER) | payer OTHER ==
[2019-09-13 00:15] VITALS: TEMP 98.7
--- NOTE | 2019-09-13 00:57 | XR ---
EXAMINATION TYPE: XR chest 2V DATE OF EXAM: 09/13/2019 COMPARISON: NONE HISTORY: Chest pain TECHNIQUE: FINDINGS: Heart and mediastinum are normal. Lungs are clear. Diaphragm is normal. Bony thorax appears normal. Pulmonary vascularity is normal. IMPRESSION: Normal chest.
--- NOTE | 2019-09-13 01:05 | ED ---
General Adult HPI - General Chief complaint: Back Pain/Injury Stated complaint: Muscle Spasm Time Seen by Provider: 09/13/19 00:19 Source: patient Mode of arrival: ambulatory Limitations: no limitations - History of Present Illness Initial comments: Patient is a 21-year-old female presenting to the emergency Department with complaints of left sided rib spasms 2 days. Patient states she noticed the discomfort yesterday standing from the front of her chest all around the back of her chest. She states this feels like the ribs are cramping and spasming. Patient denies any anterior chest pain, shortness of breath. She states it does hurt when she does take in a deep breath. She states twisting her torso also increases her discomfort. She denies any falls or trauma to the area. She denies any recent travel or history of blood clots. She denies any fever, chills, cough. She has no other complaints at this time. Upon arrival to the ER, patient was tachycardia at 130, rest of vitals normal. Upon recheck her pulse was 100. Patient states her pulse is normally around 90-100. - Related Data Home Medications Medication Instructions Recorded Confirmed Mth-Zqyi-Sgkcf Acid 1 cap PO DAILY 07/31/18 11/23/18 [-U Capsule (formulary)] Ranitidine HCl [Zantac] 150 mg PO HS 10/09/18 11/23/18 Ondansetron [Zofran] 4 mg PO Q12HR PRN 11/23/18 11/23/18 Previous Rx's Medication Instructions Recorded Cyclobenzaprine [Flexeril] 5 mg PO BID #10 tablet 09/13/19 Allergies Allergy/AdvReac Type Severity Reaction Status Date / Time amoxicillin Allergy Unknown Verified 09/13/19 00:15 Tetanus Vaccines and Toxoid Allergy Rash/Hives Verified 09/13/19 00:15 hydrocodone [From [place]] AdvReac Nausea & Verified 09/13/19 00:15 Vomiting hydromorphone [From Dilaudid] AdvReac Nausea & Verified 09/13/19 00:15 Vomiting Review of Systems ROS Statement: Those systems with pertinent positive or pertinent negative responses have been documented in the HPI. ROS Other: All systems not noted in ROS Statement are negative. Past Medical History Past Medical History: No Reported History Additional Past Medical History / Comment(s): frequent N/V, diarrhea, abd. pain History of Any Multi-Drug Resistant Organisms: None Reported Past Surgical History: Cholecystectomy, Orthopedic Surgery Additional Past Surgical History / Comment(s): EXC WISDOM TEETH. RT KNEE ACL RECONSTRUCTIONS Past Anesthesia/Blood Transfusion Reactions: Postoperative Nausea & Vomiting (PONV) Additional Past Anesthesia/Blood Transfusion Reaction / Comment(s): SEVERE PONV, EVEN W/ PRE-MED RX Past Psychological History: No Psychological Hx Reported Smoking Status: Never smoker Past Alcohol Use History: None Reported Past Drug Use History: None Reported - Past Family History Mother Family Medical History: No Reported History General Exam - General Exam Comments Initial Comments: GENERAL: Well-appearing, well-nourished and in no acute distress. HEAD: Atraumatic, normocephalic. EYES: Pupils equal round and reactive to light, extraocular movements intact, sclera anicteric, conjunctiva are normal. ENT: TMs normal, nares patent, oropharynx clear without exudates. Moist mucous membranes. NECK: Normal range of motion, supple without lymphadenopathy or JVD. LUNGS: Breath sounds clear to auscultation bilaterally and equal. No wheezes rales or rhonchi. Tender to palpation of the left anterior and lateral ribs. Increased pain with deep breathing, torso twisting and trunk flexion. HEART: Slightly tachycardia rate and rhythm without murmurs, rubs or gallops. ABDOMEN: Soft, nontender, normoactive bowel sounds. No guarding, no rebound. No masses appreciated. : Deferred EXTREMITIES: Normal range of motion, no pitting or edema. No clubbing or cyanosis. NEUROLOGICAL: Cranial nerves II through XII grossly intact. Normal speech, normal gait. PSYCH: Normal mood, normal affect. SKIN: Warm, Dry, normal turgor, no rashes or lesions noted. Limitations: no limitations Course Vital Signs 09/13/19 09/13/19 00:12 01:27 Temperature 98.7 F Pulse Rate 133 H 102 H Respiratory 20 18 Rate Blood Pressure 121/85 114/86 O2 Sat by Pulse 97 97 Oximetry Medical Decision Making - Medical Decision Making Patient is a 29-year-old female presenting with muscle cramping of the left side of the rib cage. No injuries or falls. Chest x-ray shows no acute abnormalities. No history of PE. Given patient's increase in symptoms with torso stretching, twisting, deep breathing, it is most likely this is a muscle spasm. Patient was given Valium and will be discharged home. She will continue with heat and gentle stretching. Patient also given prescription for Flexeril. She is in agreement this plan of care. Strict return parameters were discussed with the patient she verbalized understanding. Case discussed with Dr. Brunson. Disposition Clinical Impression: Rib pain on left side, Muscle spasm Disposition: HOME SELF-CARE Condition: Stable Instructions (If sedation given, give patient instructions): Costochondritis (ED) Additional Instructions: Please return to the Emergency Department if symptoms worsen or any other concerns. Take muscle relaxer as prescribed for continued muscle spasm. Try heat to the area and gentle stretching. Follow up with PCP. Prescriptions: Cyclobenzaprine [Flexeril] 5 mg PO BID #10 tablet Is patient prescribed a controlled substance at d/c from ED?: No Referrals: Serina Rios MD [Primary Care Provider] - 1-2 days
[2019-09-13] MEDS ORDERED: DIAZEPAM 5 MG TAB PO STA (01:19)
[2019-09-13 01:29] VITALS: BP 114/86; PULSE 102; RESP 18
== END 2019-09-13 04:51 | disposition home or self-care (01) ==
LOC: EC 00:07
DX: M62.838 Other muscle spasm (principal); R07.81 Pleurodynia; R00.0 Tachycardia, unspecified; Z79.899 Other long term (current) drug therapy; Z88.0 Allergy status to penicillin; Z88.5 Allergy status to narcotic agent; Z88.7 Allergy status to serum and vaccine
CPT/HCPCS: 71046; 99283

== ENCOUNTER 2020-08-11 08:54 | Emergency (ER) | payer OTHER ==
[2020-08-11 09:00] VITALS: BP 121/74; PULSE 94; RESP 18; TEMP 98
[2020-08-11] MEDS ORDERED: predniSONE 50 MG TAB PO STA (09:07)
[2020-08-11] MEDS ORDERED: FAMOTIDINE 20 MG TAB PO STA (09:08)
--- NOTE | 2020-08-11 09:08 | ED ---
General Adult HPI - General Chief complaint: Allergic Reaction Stated complaint: Hives Time Seen by Provider: 08/11/20 08:55 Source: patient, RN notes reviewed, old records reviewed Mode of arrival: ambulatory Limitations: no limitations - History of Present Illness Initial comments: This is a 30-year-old female presents emergency department stating that she believes she is having ALLERGIC reaction because her neck and arms back abdomen and upper thighs are all extremely itchy and there is slight erythema in those areas. Patient states she cannot take Benadryl but she has taken Claritin and has not helped. Patient states she's taken multiple showers and that has not helped. Patient states she does not know of anything that could possibly be g iving her this ALLERGIC reaction except for may be switching some dryer beats that she uses with her clothes. Patient denies any shortness of breath or difficulty breathing. Patient denies any nausea vomiting per patient's any headache patient denies numbness weakness. Patient states she does have an ALLERGY to some insect but normally is only her face that becomes red and itchy. Patient denies any issues swallowing. - Related Data Home Medications Medication Instructions Recorded Confirmed Ihu-Lcqo-Fhygx Acid 1 cap PO DAILY 07/31/18 11/23/18 [-U Capsule (formulary)] Ranitidine HCl [Zantac] 150 mg PO HS 10/09/18 11/23/18 Ondansetron [Zofran] 4 mg PO Q12HR PRN 11/23/18 11/23/18 Previous Rx's Medication Instructions Recorded Cyclobenzaprine [Flexeril] 5 mg PO BID #10 tablet 09/13/19 predniSONE [Deltasone] 40 mg PO DAILY #8 tab 08/11/20 Allergies Allergy/AdvReac Type Severity Reaction Status Date / Time amoxicillin Allergy Unknown Verified 09/13/19 00:15 diphenhydramine Allergy Rapid Verified 08/11/20 08:56 [From Benadryl] Heart Rate Tetanus Vaccines and Toxoid Allergy Rash/Hives Verified 09/13/19 00:15 hydrocodone [From [place]] AdvReac Nausea & Verified 09/13/19 00:15 Vomiting hydromorphone [From Dilaudid] AdvReac Nausea & Verified 09/13/19 00:15 Vomiting Review of Systems ROS Statement: Those systems with pertinent positive or pertinent negative responses have been documented in the HPI. ROS Other: All systems not noted in ROS Statement are negative. Past Medical History Past Medical History: No Reported History Additional Past Medical History / Comment(s): frequent N/V, diarrhea, abd. pain History of Any Multi-Drug Resistant Organisms: None Reported Past Surgical History: Cholecystectomy, Orthopedic Surgery Additional Past Surgical History / Comment(s): EXC WISDOM TEETH. RT KNEE ACL RECONSTRUCTIONS Past Anesthesia/Blood Transfusion Reactions: Postoperative Nausea & Vomiting (PONV) Additional Past Anesthesia/Blood Transfusion Reaction / Comment(s): SEVERE PONV, EVEN W/ PRE-MED RX Past Psychological History: No Psychological Hx Reported Smoking Status: Never smoker Past Alcohol Use History: None Reported Past Drug Use History: None Reported - Past Family History Mother Family Medical History: No Reported History General Exam - General Exam Comments Initial Comments: GENERAL: Patient is well-developed and well-nourished. Patient is nontoxic and well- hydrated and is in mild distress. ENT: Neck is soft and supple. No significant lymphadenopathy is noted. Oropharynx is clear. Moist mucous membranes. Neck has full range of motion without eliciting any pain. EYES: The sclera were anicteric and conjunctiva were pink and moist. Extraocular movements were intact and pupils were equal round and reactive to light. Eyelids were unremarkable. PULMONARY: Unlabored respirations. Good breath sounds bilaterally. No audible rales rhonchi or wheezing was noted. CARDIOVASCULAR: There is a regular rate and rhythm without any murmurs gallops or rubs. ABDOMEN: Soft and nontender with normal bowel sounds. SKIN: Patient is erythematous and neck forearms back and chest. Patient states these areas are extremely itchy. No hives are noted NEUROLOGIC: Patient is alert and oriented x3. Cranial nerves II through XII are grossly intact. Motor and sensory are also intact. Normal speech, volume and content. Symmetrical smile. MUSCULOSKELETAL: Normal extremities with adequate strength and full range of motion. No lower extremity swelling or edema. No calf tenderness. LYMPHATICS: No significant lymphadenopathy is noted PSYCHIATRIC: Normal psychiatric evaluation. Limitations: no limitations Course Vital Signs 08/11/20 08:56 Temperature 98 F Pulse Rate 94 Respiratory 18 Rate Blood Pressure 121/74 O2 Sat by Pulse 97 Oximetry Disposition Clinical Impression: Allergic reaction Disposition: HOME SELF-CARE Condition: Good Instructions (If sedation given, give patient instructions): Anaphylaxis (ED) Prescriptions: predniSONE [Deltasone] 40 mg PO DAILY #8 tab Is patient prescribed a controlled substance at d/c from ED?: No Referrals: Serina Rios MD [Primary Care Provider] - 1-2 days Time of Disposition: 09:08
== END 2020-08-11 09:25 | disposition home or self-care (01) ==
LOC: EC 08:54
DX: T78.40XA Allergy, unspecified, initial encounter (principal); Z88.5 Allergy status to narcotic agent; Z88.8 Allergy status to other drugs, medicaments and biological substances; Z79.52 Long term (current) use of systemic steroids
CPT/HCPCS: 99283; J7512

== ENCOUNTER 2021-04-11 13:33 | Emergency (ER) | payer OTHER ==
--- NOTE | 2021-04-11 15:22 | ED ---
Recheck HPI - General Chief Complaint: Recheck/Abnormal Lab/Rx Stated Complaint: Headache,Cough,Wants COVID test Time Seen by Provider: 04/11/21 15:21 Source: patient, RN notes reviewed Mode of arrival: ambulatory Limitations: no limitations - History of Present Illness Initial Comments: Patient is a 31-year-old female presenting to the emergency department with viral type symptoms over the past 4 days. Patient states she was exposed to covid last weekend, started having body aches, chills about 4 days ago. Has mild cough, sore throat, congestion. A few of her family members have already tested positive. She denies history asthma COPD. She did not smoke or. She denies any nausea or vomiting, no abdominal pain. She has no further complaint s. She does have a mild temperature upon arrival at 100.1, pulse is 116, rest of vitals normal. - Related Data Home Medications Medication Instructions Recorded Confirmed Medroxyprogesterone Acetate 150 mg IM Q84D 04/11/21 04/11/21 [Depo-Provera] Allergies Allergy/AdvReac Type Severity Reaction Status Date / Time amoxicillin Allergy Unknown Verified 04/11/21 18:09 diphenhydramine Allergy Rapid Verified 04/11/21 18:09 [From Benadryl] Heart Rate egg Allergy Rash/Hives Verified 04/11/21 18:09 Tetanus Vaccines and Toxoid Allergy Rash/Hives Verified 04/11/21 18:09 hydrocodone [From [place]] AdvReac Nausea & Verified 04/11/21 18:09 Vomiting hydromorphone [From Dilaudid] AdvReac Nausea & Verified 04/11/21 18:09 Vomiting Review of Systems ROS Statement: Those systems with pertinent positive or pertinent negative responses have been documented in the HPI. ROS Other: All systems not noted in ROS Statement are negative. Past Medical History Past Medical History: No Reported History Additional Past Medical History / Comment(s): frequent N/V, diarrhea, abd. pain History of Any Multi-Drug Resistant Organisms: None Reported Past Surgical History: Cholecystectomy, Orthopedic Surgery Additional Past Surgical History / Comment(s): EXC WISDOM TEETH. RT KNEE ACL RECONSTRUCTIONS Past Anesthesia/Blood Transfusion Reactions: Postoperative Nausea & Vomiting (PONV) Additional Past Anesthesia/Blood Transfusion Reaction / Comment(s): SEVERE PONV, EVEN W/ PRE-MED RX Past Psychological History: No Psychological Hx Reported Smoking Status: Never smoker Past Alcohol Use History: None Reported Past Drug Use History: None Reported - Past Family History Mother Family Medical History: No Reported History General Exam - General Exam Comments Initial Comments: GENERAL: Patient is well-developed and well-nourished. Patient is nontoxic and in no acute distress. HEAD: Atraumatic, normocephalic. EYES: Pupils equal round and reactive to light, extraocular movements intact, sclera anicteric, conjunctiva are normal. Eyelids were unremarkable. ENT: Oropharynx clear without exudates. Moist mucous membranes. NECK: Normal range of motion, supple without lymphadenopathy or JVD. LUNGS: Unlabored respirations. Breath sounds clear to auscultation bilaterally and equal. No wheezes rales or rhonchi. HEART: Slightly tachycardia rate and rhythm without murmurs, rubs or gallops. ABDOMEN: Soft, nontender, normoactive bowel sounds. No guarding, no rebound. No masses appreciated. MUSCULOSKELETAL: Normal extremities with adequate strength and normal range of motion, no pitting or edema. No clubbing or cyanosis. NEUROLOGICAL: Patient is alert and oriented x 3. SKIN: Warm, Dry, normal turgor, no rashes or lesions noted. Limitations: no limitations Course Vital Signs 04/11/21 15:16 Temperature 100.1 F H Pulse Rate 116 H Respiratory 20 Rate Blood Pressure 109/68 O2 Sat by Pulse 99 Oximetry Medical Decision Making - Medical Decision Making Patient is a 31-year-old female here with concerns of Covid after many of her family members also positive. She did arrive febrile, slightly tachycardia. No acute findings on exam. Her rapid test is positive. Patient did receive monoclonal antibodies, no adverse reactions. Patient stable for discharge. Continue with Tylenol and Motrin for fever or body aches, increase her fluids. She is agreeable to this and is stable for discharge. - Lab Data Lab Results 04/11/21 Range/Units 15:16 Coronavirus (PCR) Detected A (Not Detectd) Disposition Clinical Impression: COVID-19 Disposition: HOME SELF-CARE Condition: Stable Instructions (If sedation given, give patient instructions): Coronavirus Disease 2019 (COVID-19) Additional Instructions: Please return to the Emergency Department if symptoms worsen or any other concerns. Recommend alternate between Tylenol and Motrin for fever and body aches. Increase your fluid intake. Follow-up with your primary care as needed. Is patient prescribed a controlled substance at d/c from ED?: No Referrals: George Pinto MD [Primary Care Provider] - 1-2 days Time of Disposition: 18:56
[2021-04-11] MEDS ORDERED: IBUPROFEN 600 MG TAB PO STA (16:35)
[2021-04-11] MEDS ORDERED: ACETAMINOPHEN TAB 500 MG TAB PO STA (16:35)
[2021-04-11] MEDS ORDERED: SODIUM CHLORIDE 0.9% 50 ML IVPB ONE (17:00)
[2021-04-11] MEDS ORDERED: BAMLANIVIMAB (EUA) 700 MG, ETESEVIMAB (EUA) 1,400 MG in SODIUM CHLORIDE 0.9% 50 ML IVPB ONE (17:00)
[2021-04-11 19:41] VITALS: BP 110/65; PULSE 98; RESP 16; TEMP 99
== END 2021-04-11 19:49 | disposition home or self-care (01) ==
LOC: EC 13:33
DX: U07.1 COVID-19 (principal); Z88.5 Allergy status to narcotic agent; Z88.7 Allergy status to serum and vaccine; Z88.0 Allergy status to penicillin; Z90.49 Acquired absence of other specified parts of digestive tract
CPT/HCPCS: 99283 ×2; 96365; 87635; M0245; J3490

== ENCOUNTER 2021-12-09 18:31 | Emergency (ER) | payer OTHER ==
[2021-12-09 18:38] VITALS: BP 113/76; PULSE 101; RESP 20; TEMP 98
[2021-12-09] MEDS ORDERED: IBUPROFEN 600 MG TAB PO STA (20:01)
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
--- NOTE | 2021-12-09 20:27 | XR ---
EXAMINATION TYPE: XR knee complete RT DATE OF EXAM: 12/09/2021 COMPARISON: NONE HISTORY: Pain TECHNIQUE: 3 views FINDINGS: There is a linear defect in the distal femur and proximal tibia related to old reconstructi ve surgery. I see no fracture nor dislocation. No sign of any significant joint effusion. Joint space s are fairly normal. IMPRESSION: Previous reconstructive surgery. No fracture seen.
== END 2021-12-09 22:04 | disposition home or self-care (01) ==
LOC: EC 18:31
DX: S80.01XA Contusion of right knee, initial encounter (principal); R51.9 Headache, unspecified; Z91.012 Allergy to eggs; Z91.048 Other nonmedicinal substance allergy status; Z88.5 Allergy status to narcotic agent; Z88.0 Allergy status to penicillin; Z88.8 Allergy status to other drugs, medicaments and biological substances; V89.2XXA Person injured in unspecified motor-vehicle accident, traffic, initial encounter
CPT/HCPCS: 99284

== ENCOUNTER → 2022-01-12 | Outpatient (CLI) | payer BC, OTHER ==
--- NOTE | 2022-01-12 16:28 | FL ---
EXAMINATION TYPE: FL arthrogram hip RT fluoroscopic-guided arthrogram injection. DATE OF EXAM: 01/12/2022 HISTORY: Questionable right hip dysplasia after post . PROCEDURES: 1. Right hip fluoroscopy. 2. Right hip arthrogram. Fluoroscopy time of 1.25 INS. TECHNIQUE: The procedure, risks, and alternatives, were discussed with the patient, who requested that melisa larson The consent form was signed, and teach-back occurred. The site/side of the procedure was marked with a line with participation by the patient. The accompan jevon paperwork was verified for consistency. A directed history and physical exam was performed prior to the procedure. Medication reconciliation was performed by ancillary personnel. A critical pause was performed with assisting personnel just pr ior to the procedure, and the patient's identity was confirmed using 2 identifiers. Imaging guidance was utilized to select the precise skin entry point just prior to the procedure. The right hip was prepped and draped in the usual sterile fashion and local 1% lidocaine anesthesia w as instilled. Under fluoroscopic guidance, a 22 gauge spinal needle was introduced into the right gl enohumeral joint. Appropriate needle tip position was confirmed after a small amount of contrast inje ction. Dr. Ortiz helped with the procedure. Approximately 8 ml of a mixture of Omnipaque 240 iodinated contrast and gadolinium was injected into the glenohumeral joint. The needle was then removed. The patient tolerated the procedure well. There was no immediate complication. After the procedure, the patient's condition was unchanged. Est imated blood loss was minimal. IMPRESSION: Technically successful right hip arthrogram injection for MRI. No immediate complication.
--- NOTE | 2022-01-13 09:16 | MR ---
INDICATION: Patient age:Female; 31 years old; Reason for study: S73.101D Sprain of right hip, M25.551 PAIN R HIP; COMPARISON: MRI right hip 03/03/2019. TECHNIQUE: Multiplanar MR imaging of the right hip was performed following intra-articular injection of gadolinium. FINDINGS: Slight degenerative blunting of the labrum along the superior anterior quadrant best appreciated on c oronal T2 fat sat image 10. Small partial-thickness tear at the posterior labral chondral junction (s eries 701, image 13). The transverse ligament and chet orbicularis are within normal limits. The righ t greater trochanteric bursa is not significantly distended. The right femoral head demonstrates normal signal characteristics. Small anterior osseous excrescenc e (CAM bump) at the femoral head neck junction best appreciated on sagittal T2 fat sat image 14 and c oned in axial image 19. There is no evidence of fracture or acute process. The acetabulum is unremar kable. There is no evidence of joint effusion or bursitis. The tendons of the gluteal , hamstring, iliopsoas, and adductors are normal in within normal limits w ithout evidence for edema. The sacroiliac joints and pubic symphysis are noted to be unremarkable. The uterus and urinary bladder are unremarkable. No lymphadenopathy is visualized. IMPRESSION: * Slight degenerative blunting of the labrum along the superior anterior quadrant with small partial thickness tear at the posterior labral chondral junction. * Small anterior osseous excrescence (CAM bump) at the femoral head neck junction. This can contribu te to cam-type femoral acetabular impingement syndrome. Correlate with physical exam testing.
== END | disposition home or self-care (01) ==
LOC: RADFLMAIN 12:38
PROVIDERS: ATTEND Orthopaedic Surgery
DX: M25.551 Pain in right hip (principal); S73.101D Unspecified sprain of right hip, subsequent encounter; X58.XXXD Exposure to other specified factors, subsequent encounter
CPT/HCPCS: 27093; 73525; 73722; A9585; Q9967

== ENCOUNTER 2023-09-20 16:07 | Outpatient (CLI) | payer BC, OTHER ==
[2023-09-20] MEDS: LACTATED RINGERS 1,000 ML IV SCH (16:51)
[2023-09-20 16:57] LABS: Appearance,Urine Cloudy (Clear); Bilirubin,Urine Negative (Negative); Blood,Urine Negative (Negative); Color,Urine Yellow; Glucose,Urine (UA) 3+ (Negative); Ketones,Urine 1+ (Negative); Leukocyte Esterase,Urine Negative (Negative); Mucus,Urine Moderate /hpf; Nitrite,Urine Negative (Negative); PH, Urine 6.5 (5.0-8.0); Protein,Urine Trace (Negative); RBC,Urine 1 /hpf (0-5); Specific Gravity,Urine 1.028 (1.001-1.035); Squamous Epithelial Cell,Urine 17 /hpf (0-4); Urobilinogen,Urine <2.0 mg/dL (<2.0); WBC,Urine 1 /hpf (0-5)
[2023-09-20 17:11] LABS: Basophils % (A) 0 %; Eosinophils # (A) 0.1 k/uL (0-0.7); Eosinophils % (A) 1 %; HCT 40.2 % (34.0-46.0); HGB 13.1 gm/dL (11.4-16.0); Hypochromasia Slight; Lymphocytes # (A) 1.9 k/uL (1.0-4.8); Lymphocytes % (A) 14 %; MCH 27.4 pg (25.0-35.0); MCHC 32.6 g/dL (31.0-37.0); Monocytes # (A) 0.7 k/uL (0-1.0); Monocytes % (A) 5 %; Neutrophils # (A) 10.6 k/uL (1.3-7.7); Neutrophils % (A) 78 %; Platelet Count 318 k/uL (150-450); Poikilocytosis Slight; RBC 4.79 m/uL (3.80-5.40); WBC 13.5 k/uL (3.8-10.6)
[2023-09-20 18:07] VITALS: BP 121/77; PULSE 98; RESP 18; TEMP 98.3
--- NOTE | 2023-09-22 18:29 | P.MSEPDOC ---
Presenting Problems - Arrival Data Date of Arrival on Unit: 09/20/23 Time of Arrival on Unit: 16:07 Mode of Transport: Ambulatory - Complaint OB-Reason for Admission/Chief Complaint: Observation/Evaluation Comment: high FHR in office with variables. IV hydration today, cbc, UA and monitorin in triage. Reative NST Medical History - Information : 3 Para: 2 Term: 1 : 1 Abortions: Spontaneous or Elective: 0 Number of Living Children: 3 - Gestational Age Gestational Age by FRANCHESCA (wks/days): 34 Weeks and 1 Days Review of Systems - Review of Systems Constitutional: No problems Breast: No problems ENT: No problems Cardiovascular: No problems Respiratory: No problems Gastrointestinal: No problems Genitourinary: No problems Musculoskeletal: No problems Neurological: No problems Skin: No problems Vital Signs - Temperature Temperature: 98.3 F Temperature Source: Oral - Pulse Right Sitting Brachial Pulse Rate: 98 Pulse Assessment Method: Automatic Cuff - Respirations Respiratory Rate: 18 Oxygen Delivery Method: Room Air O2 Sat by Pulse Oximetry: 97 - Blood Pressure Right Arm Sitting Blood Pressure: 121/77 Blood Pressure Mean: 91 Blood Pressure Source: Automatic Cuff Medical Screen Scoring - Cervical Exam Dilation (cm): 1 Effacement (%): 0 Station: -3 Membranes: Intact - Uterine Contractions Frequency From (mins): 3 Frequency To (mins): 6 Duration From (seconds): 60 Duration To (seconds): 80 Intensity: Mild Resting: Soft to palpation - Assessment - Baby A Baseline FHR: 135 Heart Rate - NICHD Category: Category I (Normal) NST: Reactive Physician Notification - Physician Notified Physician Notified Date: 09/20/23 Physician Notified Time: 17:30 Physician: Tavia Sanders New Order Received: Yes (dc home) Maternal Triage Index - Maternal Triage Index Presenting for scheduled procedure w/no complaint: No - Stat/Priority 1 Stat Priority 1: No - Urgent/Priority 2 Urgent Priority 2: No - Prompt/Priority 3 Prompt Priority 3: No - Non-Urgent/Priority 4 Non-Urgent Priority 4: Yes Criteria Met for Priority 4: 34 weeks. Reactive NST, labs reviewed, IV fluids infused. Follow up in the office as scheduled. Disposition - Disposition OB Disposition: Discharge to home, Written follow up instructions reviewed Discharge Date: 04/15/24 Discharge Time: 17:37 I agree with the RN Medical Screening Exam: Yes Case reviewed; plan agreed upon as documented in EMR&OBIX.: Yes Diagnosis: MATERNAL CARE FOR OTH ABNLT OF CERVIX, SECOND TRIMESTER
== END 2023-09-20 17:37 | disposition home or self-care (01) ==
LOC: FBPOP 16:07
PROVIDERS: ATTEND Obstetrics & Gynecology Obstetrics
DX: O99.283 Endocrine, nutritional and metabolic diseases complicating pregnancy, third trimester (principal); O34.43 Maternal care for other abnormalities of cervix, third trimester; Z3A.34 34 weeks gestation of pregnancy; Z88.0 Allergy status to penicillin; Z88.5 Allergy status to narcotic agent; Z88.8 Allergy status to other drugs, medicaments and biological substances; Z91.012 Allergy to eggs; Z88.1 Allergy status to other antibiotic agents; Z88.7 Allergy status to serum and vaccine
CPT/HCPCS: 59025; 81001; 85025; 96360; 99214

== ENCOUNTER 2023-10-08 20:55 | Outpatient (CLI) | payer BC, OTHER ==
[2023-10-08 21:58] LABS: Appearance,Urine Cloudy (Clear); Bilirubin,Urine Negative (Negative); Blood,Urine Negative (Negative); Color,Urine Light Yellow; Glucose,Urine (UA) 3+ (Negative); Ketones,Urine Trace (Negative); Leukocyte Esterase,Urine Negative (Negative); Mucus,Urine Rare /hpf; Nitrite,Urine Negative (Negative); PH, Urine 6.5 (5.0-8.0); Protein,Urine Trace (Negative); RBC,Urine <1 /hpf (0-5); Squamous Epithelial Cell,Urine 16 /hpf (0-4); Urobilinogen,Urine <2.0 mg/dL (<2.0); WBC,Urine 1 /hpf (0-5)
[2023-10-08 23:25] VITALS: BP 130/79; PULSE 110; RESP 18; TEMP 98.1
--- NOTE | 2023-10-09 18:23 | P.MSEPDOC ---
Presenting Problems - Arrival Data Date of Arrival on Unit: 10/08/23 Time of Arrival on Unit: 20:55 Mode of Transport: Ambulatory - Complaint OB-Reason for Admission/Chief Complaint: Possible Onset of Labor Comment: contractions since this morning on and off Medical History - Information : 3 Para: 2 Term: 2 : 0 Abortions: Spontaneous or Elective: 0 Number of Living Children: 2 - Gestational Age Gestational Age by FRANCHESCA (wks/days): 36 Weeks and 5 Days Review of Systems - Review of Systems Constitutional: No problems Breast: No problems ENT: No problems Cardiovascular: No problems Respiratory: No problems Gastrointestinal: No problems Genitourinary: No problems Musculoskeletal: No problems Neurological: No problems Skin: No problems Vital Signs - Temperature Temperature: 98.1 F Temperature Source: Temporal Artery Scan - Pulse Right Pulse Oximetery Pulse Rate: 110 Pulse Assessment Method: Pulse Oximetry - Respirations Respiratory Rate: 18 Oxygen Delivery Method: Room Air O2 Sat by Pulse Oximetry: 95 - Blood Pressure Right Arm Blood Pressure: 130/79 Blood Pressure Mean: 96 Blood Pressure Source: Automatic Cuff Medical Screen Scoring - Cervical Exam Dilation (cm): 3 Effacement (%): 80 Station: -2 Membranes: Intact - Uterine Contractions Frequency From (mins): 2 Frequency To (mins): 5 Duration From (seconds): 50 Duration To (seconds): 80 Intensity: Mild Resting: Soft to palpation - Assessment - Baby A Baseline FHR: 150 Heart Rate - NICHD Category: Category I (Normal) NST: Reactive Physician Notification - Physician Notified Physician Notified Date: 10/08/23 Physician Notified Time: 21:26 Physician: Jojo Duran Order Received: Yes Maternal Triage Index - Maternal Triage Index Presenting for scheduled procedure w/no complaint: No - Stat/Priority 1 Stat Priority 1: No - Urgent/Priority 2 Urgent Priority 2: No - Prompt/Priority 3 Prompt Priority 3: Yes Criteria Met for Priority 3: C/O early labor signs at 36 5/7 weeks gestation Disposition - Disposition OB Disposition: Discharge to home Discharge Date: 10/08/23 Discharge Time: 22:40 I agree with the RN Medical Screening Exam: Yes Physician's MSE Comment: I have neither seen nor examined the patient Case reviewed; plan agreed upon as documented in EMR&OBIX.: Yes Diagnosis: MATERNAL CARE FOR PROBLEM, UNSP, THIRD * DO NOT USE *
== END 2023-10-08 22:40 | disposition home or self-care (01) ==
LOC: FBPOP 20:55
PROVIDERS: ATTEND Obstetrics & Gynecology
DX: O47.03 False labor before 37 completed weeks of gestation, third trimester (principal); Z3A.36 36 weeks gestation of pregnancy; Z88.0 Allergy status to penicillin; Z91.012 Allergy to eggs; Z88.7 Allergy status to serum and vaccine; Z88.5 Allergy status to narcotic agent; Z88.8 Allergy status to other drugs, medicaments and biological substances
CPT/HCPCS: 59025; 81001; 99213

== ENCOUNTER 2023-10-09 12:26 | Outpatient (CLI) | payer BC, OTHER ==
[2023-10-09 14:27] VITALS: BP 122/73; PULSE 103; RESP 18; TEMP 97.8
--- NOTE | 2023-10-09 18:25 | P.MSEPDOC ---
Presenting Problems - Arrival Data Date of Arrival on Unit: 10/09/23 Time of Arrival on Unit: 12:30 Mode of Transport: Ambulatory - Complaint OB-Reason for Admission/Chief Complaint: Possible Onset of Labor Comment: contractions for the past few days. Was seen in triage last night for same complaint. States contractions have not gone away. States that they are every 6 minutes. Medical History - Information : 3 Para: 2 Term: 2 : 0 Abortions: Spontaneous or Elective: 0 Number of Living Children: 2 - Gestational Age Gestational Age by FRANCHESCA (wks/days): 36 Weeks and 6 Days Review of Systems - Review of Systems Constitutional: No problems Breast: No problems ENT: No problems Cardiovascular: No problems Respiratory: No problems Gastrointestinal: No problems Genitourinary: No problems Musculoskeletal: No problems Neurological: No problems Skin: No problems Vital Signs - Temperature Temperature: 97.8 F Temperature Source: Temporal Artery Scan - Pulse Right Brachial Pulse Rate: 103 Pulse Assessment Method: Automatic Cuff - Respirations Respiratory Rate: 18 Oxygen Delivery Method: Room Air O2 Sat by Pulse Oximetry: 99 - Blood Pressure Right Arm Blood Pressure: 122/73 Blood Pressure Mean: 89 Blood Pressure Source: Automatic Cuff Medical Screen Scoring - Cervical Exam Dilation (cm): 3 Effacement (%): 80 Station: -2 Membranes: Intact - Uterine Contractions Frequency From (mins): 5 Frequency To (mins): 10 Duration From (seconds): 50 Duration To (seconds): 70 Intensity: Mild Resting: Soft to palpation - Assessment - Baby A Baseline FHR: 150 Heart Rate - NICHD Category: Category I (Normal) NST: Reactive Physician Notification - Physician Notified Physician Notified Date: 10/09/23 Physician Notified Time: 13:50 Physician: Jojo Duran Order Received: Yes - Notification Comment Comment: D/C Home Maternal Triage Index - Maternal Triage Index Presenting for scheduled procedure w/no complaint: No - Stat/Priority 1 Stat Priority 1: No - Urgent/Priority 2 Urgent Priority 2: No - Prompt/Priority 3 Prompt Priority 3: Yes Criteria Met for Priority 3: states she is having contractions every 6 minutes and they are closer together than last night Disposition - Disposition OB Disposition: Discharge to home, Written follow up instructions reviewed Discharge Date: 10/09/23 Discharge Time: 14:02 I agree with the RN Medical Screening Exam: Yes Physician's MSE Comment: I have neither seen nor examined the patient Case reviewed; plan agreed upon as documented in EMR&OBIX.: Yes Diagnosis: MATERNAL CARE FOR PROBLEM, UNSP, THIRD * DO NOT USE *
== END 2023-10-09 14:02 | disposition home or self-care (01) ==
LOC: FBPOP 12:26
PROVIDERS: ATTEND Obstetrics & Gynecology
DX: O47.03 False labor before 37 completed weeks of gestation, third trimester (principal); Z3A.36 36 weeks gestation of pregnancy; Z88.0 Allergy status to penicillin; Z88.8 Allergy status to other drugs, medicaments and biological substances; Z91.012 Allergy to eggs; Z88.7 Allergy status to serum and vaccine
CPT/HCPCS: 59025; 99213

== ENCOUNTER 2023-10-14 09:48 | Outpatient (CLI) | payer BC, OTHER ==
[2023-10-14 11:26] VITALS: BP 125/67; PULSE 98; RESP 16; TEMP 97
--- NOTE | 2023-11-08 09:18 | P.MSEPDOC ---
Presenting Problems - Arrival Data Date of Arrival on Unit: 10/14/23 Time of Arrival on Unit: 10:30 Mode of Transport: Ambulatory - Complaint OB-Reason for Admission/Chief Complaint: Possible Onset of Labor Comment: CONTRACTIONS FOR 3 DAYS ONE STRONG CONTRACTION AT 430 AM Medical History - Information : 3 Para: 2 Term: 2 : 0 Abortions: Spontaneous or Elective: 0 Number of Living Children: 2 - Gestational Age Gestational Age by FRANCHESCA (wks/days): 37 Weeks and 4 Days Review of Systems - Review of Systems Constitutional: No problems Breast: No problems ENT: No problems Cardiovascular: No problems Respiratory: No problems Gastrointestinal: No problems Genitourinary: No problems Musculoskeletal: No problems Neurological: No problems Skin: No problems Vital Signs - Temperature Temperature: 97.0 F Temperature Source: Oral - Pulse Bilateral Pulse Rate: 98 Pulse Assessment Method: Automatic Cuff - Respirations Respiratory Rate: 16 Oxygen Delivery Method: Room Air - Blood Pressure Right Arm Blood Pressure: 125/67 Blood Pressure Mean: 86 Blood Pressure Source: Automatic Cuff Medical Screen Scoring - Cervical Exam Dilation (cm): 3 Effacement (%): 80 Membranes: Intact - Assessment - Baby A Heart Rate - NICHD Category: Category I (Normal) Physician Notification - Physician Notified Physician Notified Date: 10/14/23 Physician Notified Time: 10:59 Physician: DR PROCTOR Maternal Triage Index - Non-Urgent/Priority 4 Non-Urgent Priority 4: Yes Criteria Met for Priority 4: PT COMPLAINS OF CONTRACTIONS FOR 3-4 DAYS Disposition - Disposition OB Disposition: Discharge to home, Written follow up instructions reviewed I agree with the RN Medical Screening Exam: Yes Case reviewed; plan agreed upon as documented in EMR&OBIX.: Yes Diagnosis: FALSE LABOR AT OR AFTER 37 COMPLETED WEEKS OF GESTATION
== END 2023-10-14 12:00 | disposition home or self-care (01) ==
LOC: FBPOP 09:48
PROVIDERS: ATTEND Obstetrics & Gynecology Obstetrics
DX: O47.1 False labor at or after 37 completed weeks of gestation (principal); Z3A.37 37 weeks gestation of pregnancy; Z88.0 Allergy status to penicillin; Z88.8 Allergy status to other drugs, medicaments and biological substances; Z88.7 Allergy status to serum and vaccine; Z88.5 Allergy status to narcotic agent; Z91.012 Allergy to eggs
CPT/HCPCS: 59025; 99213

== ENCOUNTER → 2023-10-15 | Outpatient (CLI) | payer BC, OTHER ==
[2023-10-15 20:26] VITALS: BP 122/74; PULSE 107; RESP 16; TEMP 97.1
--- NOTE | 2023-11-08 09:19 | P.MSEPDOC ---
Presenting Problems - Arrival Data Date of Arrival on Unit: 10/15/23 Time of Arrival on Unit: 17:26 Mode of Transport: Ambulatory - Complaint OB-Reason for Admission/Chief Complaint: Possible Onset of Labor Medical History - Information : 3 Para: 2 Term: 2 : 0 Abortions: Spontaneous or Elective: 0 Number of Living Children: 2 - Gestational Age Gestational Age by FRANCHESCA (wks/days): 37 Weeks and 5 Days Review of Systems - Review of Systems Constitutional: No problems Breast: No problems ENT: No problems Cardiovascular: No problems Respiratory: No problems Gastrointestinal: No problems Genitourinary: No problems Musculoskeletal: No problems Neurological: No problems Skin: No problems Vital Signs - Temperature Temperature: 97.1 F Temperature Source: Temporal Artery Scan - Pulse Right Pulse Rate: 107 Pulse Assessment Method: Pulse Oximetry - Respirations Respiratory Rate: 16 Oxygen Delivery Method: Room Air - Blood Pressure Right Arm Blood Pressure: 122/74 Blood Pressure Mean: 90 Blood Pressure Source: Automatic Cuff Medical Screen Scoring - Cervical Exam Dilation (cm): 3 Effacement (%): 80 Station: -2 Membranes: Intact - Uterine Contractions Frequency From (mins): 3 Frequency To (mins): 5 Duration From (seconds): 60 Duration To (seconds): 80 Resting: Soft to palpation - Assessment - Baby A Baseline FHR: 125 Heart Rate - NICHD Category: Category I (Normal) NST: Reactive Physician Notification - Physician Notified Physician Notified Date: 10/15/23 Physician Notified Time: 19:44 Physician: Tavia Sanders New Order Received: No - Notification Comment Comment: Pt ok to D/C home Maternal Triage Index - Maternal Triage Index Presenting for scheduled procedure w/no complaint: No - Stat/Priority 1 Stat Priority 1: No - Urgent/Priority 2 Urgent Priority 2: Yes Provider Notified: Tavia Sanedrs Provider Notified Time: 19:44 Criteria Met for Priority 2: painful ctx [id number] Disposition - Disposition OB Disposition: Discharge to home Discharge Date: 10/15/23 Discharge Time: 19:49 I agree with the RN Medical Screening Exam: Yes Case reviewed; plan agreed upon as documented in EMR&OBIX.: Yes Diagnosis: FALSE LABOR AT OR AFTER 37 COMPLETED WEEKS OF GESTATION
== END ==
LOC: FBPOP 17:26
PROVIDERS: ATTEND Obstetrics & Gynecology Obstetrics
DX: O47.1 False labor at or after 37 completed weeks of gestation (principal); Z3A.37 37 weeks gestation of pregnancy; Z88.0 Allergy status to penicillin; Z88.5 Allergy status to narcotic agent; Z88.8 Allergy status to other drugs, medicaments and biological substances; Z88.7 Allergy status to serum and vaccine; Z91.012 Allergy to eggs
CPT/HCPCS: 59025; 99213

== ENCOUNTER 2023-10-17 16:37 | Inpatient (IN) | payer BC, OTHER ==
[2023-10-17 17:35] VITALS: RESP 16
[2023-10-17 17:42] LABS: ALT 74 U/L (4-34); AST 30 U/L (14-36); African American GFR (CKD) >90 (>60 ml/min/1.73 sqM); Blood Urea Nitrogen 9 mg/dL (7-17); LDH 161 U/L (120-246); Non-African American GFR(CKD) >90 (>60 ml/min/1.73 sqM); Uric Acid 3.8 mg/dL (3.7-7.4)
[2023-10-17 17:52] LABS: Basophils % (A) 0 %; Eosinophils # (A) 0.1 k/uL (0-0.7); Eosinophils % (A) 1 %; HGB 12.2 gm/dL (11.4-16.0); Hypochromasia Slight; Lymphocytes # (A) 1.7 k/uL (1.0-4.8); Lymphocytes % (A) 15 %; MCH 26.8 pg (25.0-35.0); MCHC 32.2 g/dL (31.0-37.0); MCV 83.2 fL (80.0-100.0); Mean Platelet Volume 8.7; Monocytes # (A) 0.6 k/uL (0-1.0); Monocytes % (A) 5 %; Neutrophils # (A) 9.1 k/uL (1.3-7.7); Neutrophils % (A) 77 %; Platelet Count 288 k/uL (150-450); RBC 4.57 m/uL (3.80-5.40); RDW 14.7 % (11.5-15.5); WBC 11.8 k/uL (3.8-10.6)
[2023-10-17 18:10] LABS: Creatinine,Urine Random 83.4 mg/dL
[2023-10-17] MEDS: FAMOTIDINE 20 MG TAB PO SCH (19:46)
--- NOTE | 2023-10-18 09:24 | P.HPOB ---
History of Present Illness H&P Date: 10/18/23 Chief Complaint: IUP at 38-1/7 weeks, headache, status post trauma 33-year-old G3, P2 at 38-1/7 weeks that presents to labor and delivery after her closet fell on the back of her head, afterwards she had a headache and after taking her blood pressure it was noted to be 140s over 90s. Patient presented to labor and delivery for evaluation. Blood pressures were noted to be normal, headache remained. Patient was admitted for continued observation given trauma and headache. Patient states she feels sore this morning and headache remains. Blood pressures have been good through the night. Patient had been struggling with chronic contractions which have since resolved. Patient notes good movement. monitoring has been category 1 Patient has been receiving routine care with myself which has been complicated by chronic contractions since approximately 35 weeks. Patient was taken off work contractions continued but no cervical change was appreciated. Patient has been offered multiple times comfort measures such as morphine rest or terbutaline and attempts to slow the contractions she has declined any intervention. Review of Systems Constitutional: Reports as per HPI, Reports fatigue, Denies chills, Denies fever Ears, nose, mouth and throat: Reports headache Cardiovascular: Reports leg edema Respiratory: Denies dyspnea Gastrointestinal: Denies nausea, Denies vomiting Genitourinary: Reports Past Medical History Past Medical History: No Reported History Additional Past Medical History / Comment(s): frequent N/V, diarrhea, abd. pain History of Any Multi-Drug Resistant Organisms: None Reported Past Surgical History: Cholecystectomy, Orthopedic Surgery Additional Past Surgical History / Comment(s): EXC WISDOM TEETH. RT KNEE ACL RECONSTRUCTIONS Past Anesthesia/Blood Transfusion Reactions: Postoperative Nausea & Vomiting (PONV) Additional Past Anesthesia/Blood Transfusion Reaction / Comment(s): SEVERE PONV, EVEN W/ PRE-MED RX Past Psychological History: No Psychological Hx Reported Smoking Status: Never smoker Past Alcohol Use History: None Reported Past Drug Use History: None Reported - Past Family History Mother Family Medical History: No Reported History Medications and Allergies Home Medications Medication Instructions Recorded Confirmed Type Aspirin [Adult Low Dose Aspirin EC] 81 mg PO DAILY 10/08/23 10/17/23 History Loratadine [Claritin] 10 mg PO DAILY 10/08/23 10/17/23 History Vit No.179/Iron/Folic 1 tab PO DAILY 10/08/23 10/17/23 History [ Tablet] Acetaminophen Tab [Tylenol] 650 mg PO Q6H 10/17/23 10/17/23 History Famotidine [Pepcid] 20 mg PO DAILY 10/17/23 10/17/23 History Rizatriptan Benzoate [Rizatriptan] 10 mg PO ONCE PRN 10/17/23 10/17/23 History Allergies Allergy/AdvReac Type Severity Reaction Status Date / Time amoxicillin Allergy Nausea & Verified 10/17/23 16:55 Vomiting & Diarrhea diphenhydramine Allergy Rapid Verified 10/17/23 16:55 [From Benadryl] Heart Rate egg Allergy Rash/Hives Verified 10/17/23 16:55 Tetanus Vaccines and Toxoid Allergy Rash/Hives Verified 10/17/23 16:55 hydrocodone [From [place]] AdvReac Nausea & Verified 10/17/23 16:55 Vomiting hydromorphone [From Dilaudid] AdvReac Nausea & Verified 10/17/23 16:55 Vomiting Exam Osteopathic Statement: *. No significant issues noted on an osteopathic structural exam other than those noted in the History and Physical/Consult. Vital Signs Temp Pulse Resp BP Pulse Ox 10/18/23 04:00 75 16 95/52 10/18/23 00:00 97.8 F 89 16 116/68 10/17/23 20:00 97.4 F L 71 16 121/69 10/17/23 16:54 97.9 F 90 16 125/68 96 Intake and Output 10/17/23 10/18/23 10/18/23 22:59 06:59 14:59 Other: # Voids 1 4 Weight 83.915 kg Targeted physical exam is performed this date General is well-nourished well-developed female in no acute distress, she is resting comfortably in bed. Breathing appears nonlabored, heart has regular rate and rhythm, abdomen is gravid and appropriate for gestational age, cervical exam is deferred as she was checked last night noted to be 370/-2 station vertex presentation by RN she denies contractions this morning. Results Result Diagrams: 10/17/23 17:15 10/17/23 17:15 Abnormal Lab Results - Last 24 Hours (Table) 10/17/23 10/17/23 Range/Units 17:15 17:15 WBC 11.8 H (3.8-10.6) k/uL Neutrophils # 9.1 H (1.3-7.7) k/uL Creatinine 0.43 L (0.52-1.04) mg/dL ALT 74 H (4-34) U/L Assessment and Plan (1) Trauma Current Visit: Yes Status: Acute Code(s): T14.90XA - INJURY, UNSPECIFIED, INITIAL ENCOUNTER SNOMED Code(s): 610181665 (2) Elevated blood pressure affecting in third trimester, antepartum Current Visit: Yes Status: Acute Code(s): O16.3 - UNSPECIFIED MATERNAL HYPERTENSION, THIRD TRIMESTER SNOMED Code(s): 39160040 (3) Term Current Visit: No Status: Acute Code(s): Z34.90 - ENCNTR FOR SUPRVSN OF NORMAL , UNSP, UNSP TRIMESTER SNOMED Code(s): 71611293 Plan: 33-year-old at 38-1/7 weeks that presented after her closet fell on the back of her head. Patient noted increased blood pressure at home and headache. Patient presented to the hospital. Blood pressures have been good since observation. heart tones have been category 1, patient had been minimal/irregular. Awaiting a.m. labs. Discussed with patient gestational age and no indication for delivery if labs remain normal. Patient states understanding.
[2023-10-18 09:59] LABS: ALT 70 U/L (4-34); AST 30 U/L (14-36); African American GFR (CKD) >90 (>60 ml/min/1.73 sqM); Blood Urea Nitrogen 10 mg/dL (7-17); LDH 164 U/L (120-246); Non-African American GFR(CKD) >90 (>60 ml/min/1.73 sqM); Uric Acid 4.2 mg/dL (3.7-7.4)
[2023-10-18 10:15] LABS: Basophils % (A) 0 %; Eosinophils # (A) 0.1 k/uL (0-0.7); Eosinophils % (A) 1 %; HCT 38.3 % (34.0-46.0); HGB 12.1 gm/dL (11.4-16.0); Hypochromasia Slight; Lymphocytes # (A) 1.6 k/uL (1.0-4.8); Lymphocytes % (A) 17 %; MCH 26.3 pg (25.0-35.0); MCHC 31.6 g/dL (31.0-37.0); MCV 83.3 fL (80.0-100.0); Mean Platelet Volume 8.6; Monocytes # (A) 0.5 k/uL (0-1.0); Monocytes % (A) 5 %; Neutrophils # (A) 7.5 k/uL (1.3-7.7); Neutrophils % (A) 76 %; Platelet Count 269 k/uL (150-450); RDW 14.7 % (11.5-15.5); WBC 9.9 k/uL (3.8-10.6)
[2023-10-18] MEDS: FAMOTIDINE 20 MG TAB PO SCH (12:31)
[2023-10-18 17:47] LABS: Total Volume 24 Hour,Urine 925 mls (800-1800)
[2023-10-18 18:07] LABS: Total Protein 24 Hour,Urine <46 mg/24hr (42.0-225.0)
[2023-10-18] MEDS ORDERED: CARBOPROST TROMETHAMINE 250 MCG/ML 1 ML AMP IM PRN (18:24)
[2023-10-18] MEDS ORDERED: TERBUTALINE 1 MG/ML VIAL SQ PRN (18:24)
[2023-10-18] MEDS ORDERED: TRANEXAMIC 1,000 MG/100ML-NACL 1,000 MG in EMPTY BAG 1 BAG IV PRN (18:24)
[2023-10-18] MEDS ORDERED: OXYTOCIN 10 UNIT/ML 1 ML VIAL IM PRN (18:24)
[2023-10-18] MEDS ORDERED: LIDOCAINE 0.5% (PF) 5 MG/ML (50 ML SDV) SQ PRN (18:24)
[2023-10-18] MEDS ORDERED: METHYLERGONOVINE 0.2 MG/ML 1 ML AMP IM PRN (18:24)
[2023-10-18] MEDS ORDERED: miSOPROStoL 200 MCG TAB PO PRN (18:24)
[2023-10-18] MEDS ORDERED: FAMOTIDINE 20 MG TAB PO SCH (21:00)
[2023-10-19] MEDS: LACTATED RINGERS 1,000 ML IV SCH (06:27)
[2023-10-19 07:05] LABS: ALT 68 U/L (4-34); African American GFR (CKD) >90 (>60 ml/min/1.73 sqM); Blood Urea Nitrogen 9 mg/dL (7-17); Non-African American GFR(CKD) >90 (>60 ml/min/1.73 sqM)
[2023-10-19] MEDS: OXYTOCIN 30 UNITS/500 ML NS 30 UNIT in SALINE 1 500ML.BAG IV SCH (07:08)
[2023-10-19 07:34] LABS: Basophils % (A) 0 %; Eosinophils # (A) 0.1 k/uL (0-0.7); Eosinophils % (A) 1 %; HCT 38.2 % (34.0-46.0); HGB 12.1 gm/dL (11.4-16.0); Hypochromasia Slight; Lymphocytes # (A) 1.8 k/uL (1.0-4.8); Lymphocytes % (A) 16 %; MCH 26.4 pg (25.0-35.0); MCHC 31.8 g/dL (31.0-37.0); MCV 83.3 fL (80.0-100.0); Mean Platelet Volume 8.2; Monocytes # (A) 0.5 k/uL (0-1.0); Monocytes % (A) 4 %; Neutrophils # (A) 8.7 k/uL (1.3-7.7); Neutrophils % (A) 77 %; Platelet Count 283 k/uL (150-450); RBC 4.59 m/uL (3.80-5.40); RDW 14.9 % (11.5-15.5); WBC 11.3 k/uL (3.8-10.6)
[2023-10-19 08:33] LABS: AST 50 U/L (14-36); LDH 358 U/L (120-246)
[2023-10-19] MEDS: NALBUPHINE 10 MG/ML (10 ML MDV) IV PRN (09:22)
[2023-10-19] MEDS ORDERED: HYDROCORTISONE 2.5% RECTAL CREAM 30 GM TUBE RECTAL PRN (11:40)
[2023-10-19] MEDS ORDERED: SIMETHICONE 80 MG CHEWABLE PO PRN (11:40)
[2023-10-19] MEDS ORDERED: ZOLPIDEM 5 MG TAB PO PRN (11:40)
[2023-10-19] MEDS ORDERED: LANOLIN CREAM 1 GM TUBE TOPICAL PRN (11:40)
[2023-10-19] MEDS ORDERED: BENZOCAINE/MENTHOL SPRAY 1 GM/SPRAY AEROSOL TOPICAL PRN (11:40)
--- NOTE | 2023-10-19 11:40 | P.PROBDLV ---
Vaginal Delivery Note - . Vaginal Delivery Note: 33-year-old -0-0-2 at 38-2/7 weeks that presented [facility] with complaints of headache after her "closet fell on her" preeclampsia workup was completed and elevation of ALT was noted. Patient was admitted for continued observation and ALT remained elevated. Given elevation of liver function patient was offered induction of labor. Patient excepted as she has been chronically mali for weeks now. Patient had Pitocin titrated per hospital protocol. Patient underwent amniotomy and clear fluid was obtained. Patient made quick progress to labor receiving Nubain x 1 for analgesia. Patient progressed to complete dilation and began pushing and had a normal spontaneous vaginal delivery of a viable female infant at 1126, weight of 6 pounds 10.5 ounces or 3020 g. After 2-minute delay the umbilical cord was doubly clamped and cut the infant was handed to maternal abdomen. Placenta was delivered spontaneously intact with three-vessel cord being noted. On inspection the patient's vaginal vault and no lacerations were appreciated. Uterus was noted to be firm below the umbilicus at this time. Estimated blood loss 100 cc. All counts were noted to be correct x 2. Patient and infant tolerated delivery well and are resting comfortably.
[2023-10-19] MEDS ORDERED: SUMAtriptan succinate 50 MG TAB PO PRN (11:42)
[2023-10-19] MEDS: IBUPROFEN 600 MG TAB PO SCH (17:08)
[2023-10-19] MEDS: ACETAMINOPHEN TAB 325 MG TAB PO PRN (20:57)
[2023-10-19] MEDS: SENNOSIDES-DOCUSATE SODIUM 1 EACH TAB PO SCH (20:58)
--- NOTE | 2023-10-20 08:47 | P.PNOBGVD ---
Subjective - Subjective Principal diagnosis: Post day 1, normal spontaneous vaginal delivery Interval history: Patient is doing well . She is ambulating and voiding without difficulty. She is breast-feeding without difficulty. She states her pain is well-controlled. Her lochia is minimal to moderate. Patient reports: Reports appetite normal, Reports voiding normally, Reports pain well controlled, Reports ambulating normally : doing well Objective - Latest Vital Signs Latest vital signs: Vital Signs Temp Pulse Resp BP Pulse Ox 10/20/23 08:15 98.0 F 85 16 109/76 97 10/20/23 03:55 98.3 F 90 16 106/71 96 10/20/23 00:20 97.8 F 100 16 94/52 98 10/19/23 20:00 98.1 F 100 16 111/75 98 10/19/23 16:06 98.5 F 89 16 10/19/23 14:06 97.8 F 85 16 10/19/23 13:51 98.0 F 90 16 117/52 10/19/23 13:36 97.9 F 88 16 118/55 10/19/23 13:21 98.0 F 78 16 120/60 10/19/23 13:06 98.2 F 90 16 118/57 10/19/23 12:51 98.5 F 85 16 121/63 10/19/23 12:36 86 16 121/63 10/19/23 12:21 98.2 F 90 16 122/61 10/19/23 12:06 98.2 F 88 16 128/62 Intake and Output 10/19/23 10/20/23 10/20/23 22:59 06:59 14:59 Intake Total 850 300 Balance 850 300 Intake: Oral 850 300 Other: # Voids 1 1 1 # Bowel Movements 1 - Exam Extremities: Present: normal, edema Abdomen: Present: normal appearance, soft Uterus: Present: normal, firm Assessment and Plan (1) Trauma Current Visit: Yes Status: Acute Code(s): T14.90XA - INJURY, UNSPECIFIED, INITIAL ENCOUNTER SNOMED Code(s): 253338660 (2) Elevated blood pressure affecting in third trimester, antepartum Current Visit: Yes Status: Acute Code(s): O16.3 - UNSPECIFIED MATERNAL HYPERTENSION, THIRD TRIMESTER SNOMED Code(s): 88434144 (3) Term Current Visit: No Status: Acute Code(s): Z34.90 - ENCNTR FOR SUPRVSN OF NORMAL , UNSP, UNSP TRIMESTER SNOMED Code(s): 15041955 (4) Status post vaginal delivery Current Visit: No Status: Acute Code(s): UPX9224 - SNOMED Code(s): 486663596 Plan: Patient is doing well . Will plan to recheck liver function test this a.m., if continued improvement will plan discharge home later today.
[2023-10-20 08:57] VITALS: BP 109/76; PULSE 85; TEMP 98
[2023-10-20] MEDS: PRENATAL VIT-IRON-FOLIC ACID 1 EACH TABLET PO SCH (12:02)
[2023-10-20] MEDS: FAMOTIDINE 20 MG TAB PO SCH (12:02)
[2023-10-20 12:48] LABS: ALT 60 U/L (4-34); AST 32 U/L (14-36)
--- NOTE | 2023-10-20 14:13 | P.DS ---
Providers Date of admission: 10/18/23 18:24 Expected date of discharge: 10/20/23 Attending physician: Tavia Sanders Primary care physician: Tavia Sanders - Discharge Diagnosis(es) (1) Trauma Status: Acute (2) Elevated blood pressure affecting in third trimester, antepartum Status: Acute (3) Term Status: Acute (4) Status post vaginal delivery Status: Acute Hospital Course: 33-year-old 3 now para 3-0-0-3 that presented to labor and delivery at 38-2/7 weeks complaints of headache status post trauma. Patient states her closet fell on the back of her head and she had noted headache. Patient presented for monitoring initially. Preeclampsia labs were done given an elevated blood pressure she reported at home. Normal in nature with a exception of an elevated ALT. Patient was observed overnight heart tones were noted to be category 1 but ALT remain elevated in the morning. At that time discussion with the patient was had regarding induction of labor secondary to altered liver function test. Patient agreed. Pitocin induction of labor was begun. Patient underwent amniotomy. Clear fluid was obtained upon amniotomy. Patient progressed well through labor declining analgesia. Patient progressed to complete began pushing and had a normal spontaneous vaginal delivery of a viable female at 1126. Patient did well . Liver enzymes were noted to be falling on day #1 and she did request discharge home. She states she is feeling well. She denies signs or symptoms of preeclampsia. Her lochia was minimal to moderate. Patient Condition at Discharge: Good Plan - Discharge Summary New Discharge Prescriptions: No Action Vit No.179/Iron/Folic [ Tablet] 1 tab PO DAILY Aspirin [Adult Low Dose Aspirin EC] 81 mg PO DAILY Loratadine [Claritin] 10 mg PO DAILY Acetaminophen Tab [Tylenol] 650 mg PO Q6H Rizatriptan Benzoate [Rizatriptan] 10 mg PO ONCE PRN PRN Reason: Headache Famotidine [Pepcid] 20 mg PO DAILY Discharge Medication List Aspirin [Adult Low Dose Aspirin EC] 81 mg PO DAILY 10/08/23 [History] Loratadine [Claritin] 10 mg PO DAILY 10/08/23 [History] Vit No.179/Iron/Folic [ Tablet] 1 tab PO DAILY 10/08/23 [History] Acetaminophen Tab [Tylenol] 650 mg PO Q6H 10/17/23 [History] Famotidine [Pepcid] 20 mg PO DAILY 10/17/23 [History] Rizatriptan Benzoate [Rizatriptan] 10 mg PO ONCE PRN 10/17/23 [History] Follow up Appointment(s)/Referral(s): Tavia Sanders DO [Primary Care Provider] - 11/30/23 1:00 pm (PP 11/30/2023 @1:00Pm Two week follow up appointment 11-02-2023 at 3pm) Patient Instructions/Handouts: Vaginal Delivery (DC), Vaginal Delivery (GEN) Activity/Diet/Wound Care/Special Instructions: No intercourse, or tub baths. No heavy lifting greater than a gallon of milk. No driving for two weeks. Call with any fever, shakes or chills, with any pain not alleviated by over the counter meds, or with any quesions or concerns. [id number] ibuprofen 600 mg or 3 tablets every 6 hours. Patient is to follow-up in the office in 2 weeks for repeat liver function test. Should she have any concerns prior to this appointment she is urged to call the office. Discharge Disposition: HOME SELF-CARE
== END 2023-10-20 14:00 | disposition home or self-care (01) | DRG 807 ==
LOC: FBPOP 16:37 → UNDOADMOB 18:31 → INTOOBSV 18:31 → 4FBP 18:31 → OBSVTOIN 18:31 → 4FBP 10-18 18:24 → OBSVTOIN 10-18 18:24
PROVIDERS: ADMIT Obstetrics & Gynecology Obstetrics; ATTEND Obstetrics & Gynecology Obstetrics
PROC: 10E0XZZ Delivery of Products of Conception, External Approach (ICD-10-PCS; principal; 2023-10-19)
DX: O16.4 Unspecified maternal hypertension, complicating childbirth (principal); Z37.0 Single live birth; R51.9 Headache, unspecified; O26.893 Other specified pregnancy related conditions, third trimester; Z3A.38 38 weeks gestation of pregnancy; Z79.82 Long term (current) use of aspirin
CPT/HCPCS: 36415; 59025; 81050; 82565; 82570; 83615; 84156; 84450; 84460; 84520; 84550; 85025; 85384; 86850; 86900; 86901; 99215

== ENCOUNTER → 2024-12-11 | Outpatient (CLI) | payer BC ==
--- NOTE | 2024-12-11 10:43 | XR ---
EXAMINATION TYPE: XR chest 2V DATE OF EXAM: 12/11/2024 10:23 AM COMPARISON: Chest radiographs from09/13/2019 CLINICAL INDICATION: Female, 34 years old with history of R05.1 ACUTE COUGH; [facility] TECHNIQUE: XR chest 2V Frontal and lateral views of the chest. FINDINGS: Lungs/Pleura: There is no evidence of pleural effusion, focal consolidation, or pneumothorax. Pulmonary vascularity: Unremarkable. Heart/mediastinum: Cardiomediastinal silhouette is unremarkable. Musculoskeletal: No acute osseous pathology. IMPRESSION: No acute cardiopulmonary disease/process. [facility], , 12/11/2024 10:41 AM
== END | disposition home or self-care (01) ==
LOC: RADXRMAIN 10:04
PROVIDERS: ATTEND Internal Medicine
DX: R05.1 Acute cough (principal)
CPT/HCPCS: 71046